=== PATIENT | female | born 1960 | race Caucasian/White ===

== ENCOUNTER 2019-11-22 09:37 | Inpatient (IN) | payer MEDICARE, MEDICAID, SELFPAY ==
[2019-11-22] VITALS (9 sets, daily range): BP systolic 99–126; BP diastolic 60–84; PULSE 66–102; RESP 18; TEMP 36.4–37.9; O2SAT 95–99; BMI 27.8
--- NOTE | ~2019-11-22 | CT_ITS ---
EXAMINATION: CT brain wo con EXAM DATE: 11/22/2019 12:21 INDICATION: Syncope. TECHNIQUE: Spiral CT of the head was performed without contrast. Axial, coronal and sagittal images were reviewed. The dose-length product (DLP) for this examination was 605.33 mGy-cm. The exposure w as tailored according to patient size, and iterative reconstruction (ASIR) was used as additional dos e reduction technique. There is no prior study for comparison. FINDINGS: There is no acute intraparenchymal hemorrhage. No evidence of intraparenchymal brain mass lesion. No evidence of acute infarction. There is no mass effect or midline shift. The ventricles are normal in size. There are no extra-axial collections. There are no acute calvarial fractures. T he orbits are unremarkable. Soft tissue is unremarkable. The visualized sinuses and mastoid air randee ls are well aerated. IMPRESSION: 1. Unremarkable head CT examination. Reviewed, dictated and finalized at location B.
--- NOTE | ~2019-11-22 | XR_ITS ---
EXAMINATION: XR chest 1V portable EXAM DATE: 11/22/2019 11:13 INDICATION: Cough, shortness of breath, symptoms for 3 days. TECHNIQUE: Portable AP frontal chest x-ray was obtained. Comparison is made to prior examination from 06/12/2016. FINDINGS: Probable small to moderate gastroesophageal hiatal hernia. Minimal linear basilar atelectas is. The lungs are otherwise clear. There are no pleural effusions. The cardiomediastinal silhouette is within normal limits. There is no pneumothorax suspected. The bones and soft tissues are unrema rkable. There are cholecystectomy clips. IMPRESSION: 1. Minimal linear basilar atelectasis. 2. Probable small to moderate hiatal hernia. Reviewed, dictated and finalized at location B.
--- NOTE | ~2019-11-22 | CT_ITS ---
EXAMINATION: CTA chest PE protocol DATE: 11/22/2019 12:21 INDICATION: Soreness of breath, cough and elevated d-dimer. Syncopal episode. TECHNIQUE: Computed tomography (CT) pulmonary angiogram of the chest was performed with 100 mL Omnipa que-350 intravenous contrast. Additional 3D reconstructions utilizing coronal maximum intensity proje ction (MIP) were performed. Automated exposure control and iterative reconstruction technique were em ployed. The dose-length product was 606.06 mGy-cm. COMPARISON: None FINDINGS: Excellent contrast opacification of the pulmonary arteries. There is mild streak artifact from dense contrast in the superior vena cava and right atrium. To severe scattered respiratory motion artifact which significantly limits evaluation in the segmental and first order subsegmental arteries and rend ers more peripheral evaluation essentially nondiagnostic. No definitive pulmonary embolism identified . Mild linear discoid atelectasis in the bilateral lower lobes. There are scattered groundglass opaci ties throughout both lungs with dependent predominance favoring additional atelectasis, mild pulmonar y edema and/or pneumonia. No pleural effusion. Borderline heart size. No pericardial effusion. Thorac ic aorta is normal in caliber with no dissection. Moderate-sized sliding-type hiatal hernia. No patho logically enlarged thoracic lymphadenopathy. 2.1 cm cyst at the apex of the spleen. 6.2 cm mass in th e liver which can be seen on MRI studies dating back to 03/30/2014 with imaging features on prior MRI studies most consistent with a cavernous hemangioma. Additional unchanged 1.5 cm low-attenuation lesi on at the dome of the liver which could represent additional hepatic cyst or hemangioma. Cholecystect rebecca clips the gallbladder fossa. Partially visualized at least 5.1 cm left renal cyst. There are few scattered colonic diverticula without adjacent inflammatory change to suggest diverticulitis. Mild th oracic dextrocurvature with moderate spondylosis. IMPRESSION: 1. No definitive pulmonary embolism although sensitivity is decreased in the segmental and first orde r segmental pulmonary arteries due to respiratory motion and essentially nondiagnostic in the more pe ripheral smaller subsegmental pulmonary arteries. 2. Scattered groundglass opacities in both lungs with dependent predominant to at least in part atele ctasis with differential including pulmonary edema or pneumonia. 3. Borderline heart size. 4. Moderate-sized sliding-type hiatal hernia. Reviewed, dictated and finalized at location A. IMPRESSION: 1. No definitive pulmonary embolism although sensitivity is decreased in the se gmental and first order segmental pulmonary arteries due to respiratory motion and essentially nondiagnostic in the more peripheral smaller subsegmental pulmo nary arteries. 2. Scattered groundglass opacities in both lungs with dependent predominant to at least in part atelectasis with differential including pulmonary edema or pne umonia. 3. Borderline heart size. 4. Moderate-sized sliding-type hiatal hernia.
[2019-11-22 10:13] LABS: Basophils Percent Auto 0.3 % (0.2-1.2); Eosinophils Percent Auto 0.4 % (0-4.4); Hematocrit 42.8 % (37.0-47.0); Hemoglobin 14.3 g/dL (12.0-15.0); Immature Granulocyte Absolute 0.07 K/mm3 (0.00-0.031); Immature Granulocyte Percent A 0.8 % (0-0.5); Lymphocytes Absolute Auto 1.12 K/mm3 (0.9-3.2); Lymphocytes Percent Auto 12.2 % (18.3-44.2); Mean Corpuscular HGB Conc 33.4 g/dl (32-36); Mean Corpuscular Volume 92.8 fl (80-100); Mean Platelet Volume 9.8 fl (7.4-10.4); Monocytes Absolute Auto 0.7 K/mm3 (0.1-0.6); Monocytes Percent Auto 7.1 % (2.6-8.5); Neutrophils Absolute Auto 7.3 K/mm3 (1.3-6.7); Neutrophils Percent Auto 79.2 % (45.5-73.1); Platelet Count Result 184 k/mm3 (150-375); Red Blood Count 4.61 M/mm3 (4.2-5.4); Red Cell Distribution Width 13.2 % (11.5-14.5); White Blood Count 9.2 K/mm3 (4.5-10.0)
--- NOTE | 2019-11-22 10:21 | ED.GENADULT ---
HPI - General Adult General Chief complaint: Nausea/Vomiting/Diarrhea Stated complaint: CHILLS, VOMITING Time Seen by Provider: 11/22/19 10:08 Source: patient Mode of arrival: ambulatory Limitations: no limitations History of Present Illness HPI narrative: This patient is a 59 year old female who presents for evaluation of flu like symptoms. She states she starting friday she developed night sweats, nausea, vomiting, diarrhea and productive cough. She is getting progressively sob so she has been sent to ER. She reports subjective fever. She denies sick contacts. Onset (ago): day(s) (4) Related Data Home Medications Medication Instructions Recorded Confirmed aspirin 81 mg PO DAILY 11/22/19 11/22/19 atorvastatin 40 mg PO HS 11/22/19 11/22/19 metoprolol succinate 50 mg PO HS 11/22/19 11/22/19 trazodone 75 mg PO HS 11/22/19 11/22/19 Allergies Allergy/AdvReac Type Severity Reaction Status Date / Time doxycycline Allergy Mild Hyperactive Verified 05/31/19 13:24 cefuroxime Allergy Unknown reaction Verified 05/31/19 13:24 not available erythromycin base Allergy Unknown Nausea Verified 05/31/19 13:24 lisinopril Allergy Unknown Unknown Verified 11/22/19 09:48 Review of Systems Review of Systems: All systems reviewed & are unremarkable except as noted in HPI and below Constitutional: Constitutional: Reports chills, Reports fatigue and Reports weakness ENT: Reports nasal congestion Cardiovascular: Cardiovascular: Denies chest pain Respiratory: Respiratory: Reports cough, Reports dyspnea and Denies wheezing Gastrointestinal: Gastrointestinal: Reports abdominal pain, Reports diarrhea, Reports nausea and Reports vomiting Musculoskeletal: Musculoskeletal: Reports myalgias Neurologic: Reports headache(s) Endocrine: Endocrine: Reports fatigue PMFSH Past Medical History Medical History Essential (primary) hypertension Family History Family History Mother Family history of cardiac disorder, Onset Age: 82 Hypertension Father Family history of malignant neoplasm Diabetes mellitus Depression Hypertension Patient's father is Family history of cardiovascular disease Social History Social History Smoking status: Never smoker Alcohol intake: never Substance use: never Gender identity (if verbalized by the patient): Female Spiritual care concerns: No Exam Narrative: Exam Narrative: GENERAL: well-nourished, and in no acute distress. HEAD: Normocephalic, atraumatic EYES: PERRLA and EOMI, conjunctiva clear without discharge EARS: TM's clear bilaterally without erythema or dullness NOSE: Nares clear, no rhinorrhea or epistaxis THROAT:Mucous membranes moist, Oropharynx normal without erythema, exudate, peritonsillar swelling or fluctuance NECK: Supple, without lymphadenopathy or mass RESPIRATORY: No respiratory distress, Airway patent, Respirations non-labored, Clear to auscultation without rales, rhonchi or wheeze HEART: Regular rate and rhythm. No murmur heard. Normal peripheral pulses. ABDOMEN: Soft, nontender, nondistended, normal active bowel sounds. No masses. No rebound or guarding, No organomegaly. EXTREMITIES: No edema, normal strength with full range of motion. SKIN: Warm, dry, normal color without rash NEURO: Alert and oriented x3. CN 2-12 grossly intact. No focal deficits. PSYCH: Normal mood and affect. Course Reevaluation(s) Reevaluation #1: Nursing staff states that while patient was getting AbG she seems to pass out and jerk. They when they walked in room she was alert and oriented and no postictal. Her son is worried she had seizure but it sounds like syncopal episode. Date: 11/22/19 Time: 11:25 Consultations Consultation #1: I Discussed case with Dr. Mansfield and he
[2019-11-22 10:28] LABS: Alanine Aminotransferase 48 U/L (4-35); Albumin Level 4.2 g/dL (3.5-5.1); Alkaline Phosphatase 145 U/L (38-126); Aspartate Amino Transferase 50 U/L (14-36); Bilirubin,Total 0.6 mg/dL (0.2-1.3); Blood Urea Nitrogen 25 mg/dL (7-17); Calcium 8.8 mg/dL (8.4-10.2); Carbon Dioxide 28 mmol/L (22-30); Chloride 100 mmol/L (98-107); Estimated CRCL calculation 41 ml/min; Estimated Glomerular Filt Rate 38; Glucose 108 mg/dL (65-105); Lipase 619 U/L (23-300); Potassium 3.5 mmol/L (3.4-5.0); Sodium 136 mmol/L (137-145)
[2019-11-22 10:38] LABS: Alveolar/Arterial O2 Gradient 42.7 mmHg; Base Excess ABG 1.4 mEq/l (+/-2.0); Carboxyhemoglobin 0.6 % THb (0-2.0); Fractional Inspired Oxygen 21 %; Methemoglobin ABG 0.2 %THb (0-1.5); Oxygen Content ABG 19.2 %vol (16.0-22.0); Oxygen Saturation ABG 95.1 % (95.0-100.0); Oxyhemoglobin 93.5 % THb (90.0-100.0); PCO2 ABG 32.3 mmHg (35.0-45.0); PO2 ABG 68.4 mmHg (80.0-100.0); PO2 FiO2 Ratio Arterial Blood 3.26 %; Reduced Hemoglobin 5.7 %THb (0-5.0); Total Hemoglobin 14.6 g/dL (12.0-18.0); pH ABG 7.489 (7.350-7.450)
[2019-11-22 10:39] LABS: Device ROOM AIR; Modified Allen's Test Pass; Site Drawn LEFT RADIAL
[2019-11-22 10:41] LABS: D Dimer 1.59 ug/mL (<0.48)
[2019-11-22 10:57] LABS: Lactate Dehydrogenase 668 U/L (313-618)
[2019-11-22 11:08] LABS: NT Pro B Type Natriuretic Pept 19 PG/ML (5-100)
[2019-11-22] MEDS: SODIUM CHLORIDE 0.9% IV 1,000 ML 999 ML IV CONT (11:55)
[2019-11-22 13:26] LABS: Add Urine Microscopic? YES; Appearance Urine Clear (Clear); Bilirubin Urine Negative (Negative); Blood Urine 1+ (Negative); Color Urine Straw (Yellow); Glucose Urine UA Negative (Negative); Ketones Urine Negative (Negative); Leukocyte Esterase Ur 2+ LEU/UL (Negative); Mucus Urine Rare /lpf; Nitrate Urine Negative (Negative); Protein Urine Negative (Negative); RBC Urine 0-2 /hpf (0-2); Specific Grav Ur 1.041 (1.001-1.035); Squamous Epithelial Cell Urine Rare /hpf (Few); Urobilinogen Urine Negative mg/dL (<2.0)
--- NOTE | 2019-11-22 15:36 | PC.NURSE ---
This patient, Faviola Quesada, was admitted to [facility] Surg Room 331-01. Patient/family oriented to hospital policies and general routines including ID bracelet, bed and alarms, visiting hours, pain management, procedures, bathroom and other care routines, personal items, smoking policy, room service/diet, and visiting hours. Valuables list has been completed. Information on how to activate the Rapid Response Team has been discussed. Patient/Family are encouraged to report perceived risks to care and to ask questions if they do not understand what they are told or what they should do.
[2019-11-22] MEDS: SODIUM CHLORIDE 0.9% IV 1,000 ML 125 ML IV CONT ×2 (15:47→16:03)
--- NOTE | 2019-11-22 16:37 | PM.IMHP ---
H&P: HPI History of Present Illness Chief complaint: pneumonia,suspected covid 19 Narrative: Faviola Quesada is a 59 year old female who presented to the hospital with cough, SOB and subjective fever. She also refers myalgias, nausea, vomiting and diarrhea. She denies sick contacts. She also denies chest pain, no syncope, no urinary symptoms, refers headaches,no neck pain or rigidity. Review of Systems Review of Systems: All systems reviewed & are unremarkable except as noted in HPI and below PMFSH Past Medical History Medical History Essential (primary) hypertension Family History Family History Mother Family history of cardiac disorder, Onset Age: 82 Hypertension Father Family history of malignant neoplasm Diabetes mellitus Depression Hypertension Patient's father is Family history of cardiovascular disease Social History Social History Smoking status: Never smoker Alcohol intake: never Substance use: never Gender identity (if verbalized by the patient): Female Spiritual care concerns: No Meds Home Medications and Allergies Home Medications Medication Instructions Recorded Confirmed Type triamterene 37.5 1 cap PO DAILY #90 cap 05/14/19 Rx mg-hydrochlorothiazide 25 mg capsule citalopram 20 mg tablet 40 mg PO DAILY #180 tablet 09/08/19 11/22/19 Rx buspirone 10 mg tablet 10 mg PO BID #180 tablet 10/07/19 11/22/19 Rx ergocalciferol (vitamin D2) 1,250 1,250 mcg PO WEEKLY #13 cap 10/19/19 11/22/19 Rx mcg (50,000 unit) capsule aspirin 81 mg PO DAILY 11/22/19 11/22/19 History atorvastatin 40 mg PO HS 11/22/19 11/22/19 History metoprolol succinate 50 mg PO HS 11/22/19 11/22/19 History trazodone 75 mg PO HS 11/22/19 11/22/19 History Allergies Allergy/AdvReac Type Severity Reaction Status Date / Time doxycycline Allergy Mild Hyperactive Verified 05/31/19 13:24 cefuroxime Allergy Unknown reaction Verified 05/31/19 13:24 not available erythromycin base Allergy Unknown Nausea Verified 05/31/19 13:24 lisinopril Allergy Unknown Unknown Verified 11/22/19 09:48 Vital Signs Vital Signs - 24 hr 11/22/19 09:42 11/22/19 10:22 11/22/19 10:23 Temperature 97.6 F Pulse Rate 93 74 77 Respiratory Rate 18 Blood Pressure 120/62 107/74 111/84 Pulse Oximetry 97 11/22/19 10:24 11/22/19 11:52 11/22/19 13:01 Temperature Pulse Rate 102 H 66 67 Respiratory Rate 18 18 Blood Pressure 99/76 L 104/66 104/66 Pulse Oximetry 95 99 11/22/19 15:46 Temperature Pulse Rate 78 Respiratory Rate 18 Blood Pressure 122/60 Pulse Oximetry 99 Exam Const: General: no acute distress HENMT: General nose exam: Normal nares present Mouth: Yes moist mucous membranes Eyes: Sclera: sclerae normal Pupils: Equal, round and reactive pupils present EOM: EOMs intact bilaterally Neck: Neck: supple and no JVD Resp: Effort & Inspection: normal respiratory effort Auscultation: crackles, wheezes and diminished lung sounds Cardio: Rate: regular rate Rhythm: regular rhythm Other: No bradycardia or tachycardia GI: Inspection: non-distended GI Palp: Yes Soft to palpation, No Firmness to palpation present (GI), No Tenderness to palpation present (GI), No Guarding due to palpation present (GI) and No Hernia present Auscultation: normal bowel sounds and bowels sounds normal Skin: General skin exam: no rashes or lesions noted Neuro: Cognition (Neuro): normal cognition Speech: normal speech Motor exam (neuro): 5/5 motor strength present throughout and Normal motor muscle tone present throughout Extrem: General: normal to inspection Psych: Affect: normal affect H&P: Results Labs Labs: Short CBC 11/22/19 Range/Units 10:03 WBC 9.2 (4.5-10.0) K/mm3 Hgb 14.3 (12.0-15.0) g/dL Hct
--- NOTE | 2019-11-22 16:53 | ECG_ITS ---
Measurements Intervals [place] Rate: 70 P: 31 TX: 162 QRS: -41 QRSD: 97 T: 25 QT: 407 QTc: 442 Interpretive Statements SINUS RHYTHM LEFT AXIS DEVIATION INCOMPLETE RIGHT BUNDLE BRANCH BLOCK BORDERLINE ST-T WAVE ABNORMALITY- ANT/INF LEADS BORDERLINE ECG Electronically Signed On 11-23-2019 7:11:13 CDT by Dave Miller D.O.
[2019-11-22 19:07] LABS: SARS-CoV-2 RNA PCR Positive
--- NOTE | 2019-11-22 19:10 | PC.NURSE ---
Notified Dr. Barriga that patient COVID test was positive. No new orders.
[2019-11-22] MEDS: ATORVASTATIN 40 MG TABLET PO (21:03)
[2019-11-22] MEDS: busPIRone HCL 10 MG TABLET PO (21:03)
[2019-11-22] MEDS: traZODone HCL 25 MG TABLET 75 MG PO (21:03)
[2019-11-22] MEDS: METOPROLOL SUCCINATE EXT REL 50 MG TABCR PO (21:04)
[2019-11-22] MEDS: HEPARIN SODIUM 5,000 UNITS/ML VIAL 5000 UNITS SUB-Q (21:04)
[2019-11-23 02:00] VITALS: BP 98/49; PULSE 75; RESP 20; TEMP 38.2; O2SAT 96
[2019-11-23] MEDS: SODIUM CHLORIDE 0.9% IV 1,000 ML 125 ML IV CONT (04:00)
[2019-11-23] MEDS: HEPARIN SODIUM 5,000 UNITS/ML VIAL 5000 UNITS SUB-Q ×2 (05:45→14:44)
[2019-11-23 06:00] VITALS: BP 105/60; PULSE 67; RESP 18; TEMP 37.6; O2SAT 92
[2019-11-23 06:24] LABS: Basophils Percent Auto 0.3 % (0.2-1.2); Eosinophils Percent Auto 0.4 % (0-4.4); Hemoglobin 11.7 g/dL (12.0-15.0); Immature Granulocyte Absolute 0.05 K/mm3 (0.00-0.031); Immature Granulocyte Percent A 0.7 % (0-0.5); Lymphocytes Absolute Auto 1.12 K/mm3 (0.9-3.2); Lymphocytes Percent Auto 16.8 % (18.3-44.2); Mean Corpuscular HGB Conc 32.5 g/dl (32-36); Mean Corpuscular Hemoglobin 30.5 pg (26-34); Mean Platelet Volume 9.5 fl (7.4-10.4); Monocytes Absolute Auto 0.4 K/mm3 (0.1-0.6); Monocytes Percent Auto 5.4 % (2.6-8.5); Neutrophils Absolute Auto 5.1 K/mm3 (1.3-6.7); Neutrophils Percent Auto 76.4 % (45.5-73.1); Platelet Count Result 136 k/mm3 (150-375); Red Blood Count 3.83 M/mm3 (4.2-5.4); Red Cell Distribution Width 13.2 % (11.5-14.5); White Blood Count 6.7 K/mm3 (4.5-10.0)
[2019-11-23 06:40] LABS: Alanine Aminotransferase 32 U/L (4-35); Albumin Level 3.1 g/dL (3.5-5.1); Alkaline Phosphatase 105 U/L (38-126); Aspartate Amino Transferase 33 U/L (14-36); Bilirubin,Total 0.3 mg/dL (0.2-1.3); Blood Urea Nitrogen 18 mg/dL (7-17); Calcium 7.6 mg/dL (8.4-10.2); Carbon Dioxide 26 mmol/L (22-30); Chloride 102 mmol/L (98-107); Estimated CRCL calculation 43 ml/min; Estimated Glomerular Filt Rate 42; Glucose 92 mg/dL (65-105); Potassium 3.3 mmol/L (3.4-5.0); Sodium 135 mmol/L (137-145)
[2019-11-23] MEDS: CITALOPRAM HYDROBROMIDE 20 MG TABLET 40 MG PO (09:42)
[2019-11-23] MEDS: ASPIRIN 81 MG CHEWABLE TABLET PO (09:42)
[2019-11-23] MEDS: busPIRone HCL 10 MG TABLET PO (09:42)
[2019-11-23 14:00] VITALS: BP 123/86; PULSE 78; RESP 18; TEMP 37.1; O2SAT 98
--- NOTE | 2019-11-23 18:00 | P.DS_ITS ---
DS: Discharge Diagnosis Discharge Diagnosis (1) COVID-19 ruled out: Code(s): Z03.818 - Encounter for observation for suspected exposure to other biological agents ruled out Status: Acute Assessment and Plan: * Sars-cov-2 PCR positive * Pt remains afebrile, sats are good. mild cough, body aches, fatigue, not SOB * She is getting coverage for community acquired PNA with iv zithromax and iv rocephin and iv fluids * Pt can go home with course of zithromax for 10 days 2 dose packs and strict quarantine with mask and social distancing for 14 days. * Long discussion with patient, who appears very down with the diagnosis * No big risk factors apart from chronic disease and age * Lives with her who is over 60 advised that he is high risk for covid due to his age * Plan is for to live with the daughters house * Pt advised can return to the hospital if feeling worse * Follow up in 3-4 weeks if not feeling better (2) Syncope: Qualifiers: Syncope type: vasovagal syncope Qualified Code(s): R55 - Syncope and collapse Code(s): R55 - Syncope and collapse Status: Acute Assessment and Plan: * Apparently she had a syncopal episode most likley vasovagal * Pt had EKG and ABG * Pt received iv fluids in the hospital (3) D-dimer, elevated: Code(s): R79.89 - Other specified abnormal findings of blood chemistry Status: Acute Assessment and Plan: * She had a CTA that did not show evidence of central PE, but shows ground glass opactity in keeping with pneumonia (4) Chronic kidney disease, stage 3 (moderate): Code(s): N18.3 - Chronic kidney disease, stage 3 (moderate) Status: Acute Assessment and Plan: * Reviewing previous records she seems to be at her baseline. (5) Essential (primary) hypertension: Code(s): I10 - Essential (primary) hypertension Status: Acute Assessment and Plan: * Her blood pressure is on the low side right now. * Antihypertensives restarted after fluid hydration. (6) Elevated liver enzymes: Code(s): R74.8 - Abnormal levels of other serum enzymes Status: Acute Assessment and Plan: * Could be related to COVID 19. * PCP to monitor later (7) Depression: Code(s): F32.9 - Major depressive disorder, single episode, unspecified Status: Acute Assessment and Plan: * Resume her home medications. Appears very low with the diagnosis explained to her that she should be feeling better in 2 weeks time. (8) Mixed hyperlipidemia: Code(s): E78.2 - Mixed hyperlipidemia Status: Chronic Assessment and Plan: * Resume her home medications. DS: Summary Time Spent with Patient Time attestation: Total time spent providing and/or coordinating discharge services:40 minutes on day of dischrage Exam Narrative: Exam Narrative: Temp Pulse Resp BP Pulse Ox 37.1 C 78 18 123/86 98 11/23/19 14:00 11/23/19 14:00 11/23/19 14:00 11/23/19 14:00 11/23/19 14:00 Pt in bed low voice appears depressed Not SOB Not febrile No cough heard in the room DS: Data Data Completed and Pending Labs on day of discharge: Labs from last 24 hours 11/23/19 11/23/19 11/22/19 06:14 06:14 10:26 WBC 6.7 RBC 3.83 L Hgb 11.7 L
--- NOTE | 2019-11-23 18:00 | PM.DS ---
DS: Discharge Diagnosis Discharge Diagnosis (1) COVID-19 ruled out: Code(s): Z03.818 - Encounter for observation for suspected exposure to other biological agents ruled out Status: Acute Assessment and Plan: Sars-cov-2 PCR positive Pt remains afebrile, sats are good. mild cough, body aches, fatigue, not SOB She is getting coverage for community acquired PNA with iv zithromax and iv rocephin and iv fluids Pt can go home with course of zithromax for 10 days 2 dose packs and strict quarantine with mask and social distancing for 14 days. Long discussion with patient, who appears very down with the diagnosis No big risk factors apart from chronic disease and age Lives with her who is over 60 advised that he is high risk for covid due to his age Plan is for to live with the daughters house Pt advised can return to the hospital if feeling worse Follow up in 3-4 weeks if not feeling better (2) Syncope: Qualifiers: Syncope type: vasovagal syncope Qualified Code(s): R55 - Syncope and collapse Code(s): R55 - Syncope and collapse Status: Acute Assessment and Plan: Apparently she had a syncopal episode most likley vasovagal Pt had EKG and ABG Pt received iv fluids in the hospital (3) D-dimer, elevated: Code(s): R79.89 - Other specified abnormal findings of blood chemistry Status: Acute Assessment and Plan: She had a CTA that did not show evidence of central PE, but shows ground glass opactity in keeping with pneumonia (4) Chronic kidney disease, stage 3 (moderate): Code(s): N18.3 - Chronic kidney disease, stage 3 (moderate) Status: Acute Assessment and Plan: Reviewing previous records she seems to be at her baseline. (5) Essential (primary) hypertension: Code(s): I10 - Essential (primary) hypertension Status: Acute Assessment and Plan: Her blood pressure is on the low side right now. Antihypertensives restarted after fluid hydration. (6) Elevated liver enzymes: Code(s): R74.8 - Abnormal levels of other serum enzymes Status: Acute Assessment and Plan: Could be related to COVID 19. PCP to monitor later (7) Depression: Code(s): F32.9 - Major depressive disorder, single episode, unspecified Status: Acute Assessment and Plan: Resume her home medications. Appears very low with the diagnosis explained to her that she should be feeling better in 2 weeks time. (8) Mixed hyperlipidemia: Code(s): E78.2 - Mixed hyperlipidemia Status: Chronic Assessment and Plan: Resume her home medications. DS: Summary Time Spent with Patient Time attestation: Total time spent providing and/or coordinating discharge services:40 minutes on day of dischrage Exam Narrative: Exam Narrative: Temp Pulse Resp BP Pulse Ox 37.1 C 78 18 123/86 98 11/23/19 14:00 11/23/19 14:00 11/23/19 14:00 11/23/19 14:00 11/23/19 14:00 Pt in bed low voice appears depressed Not SOB Not febrile No cough heard in the room DS: Data Data Completed and Pending Labs on day of discharge: Labs from last 24 hours 11/23/19 11/23/19 11/22/19 06:14 06:14 10:26 WBC 6.7 RBC 3.83 L Hgb 11.7 L Hct 36.0 L MCV 94.0 MCH 30.5 MCHC 32.5 RDW 13.2 Plt Count 136 L MPV 9.5 Immature Gran % (Auto) 0.7 H Neut % (Auto) 76.4 H Lymph % (Auto) 16.8 L [place] % (Auto) 5.4 Eos % (Auto) 0.4 Baso % (Auto) 0.3 Lymph # (Auto) 1.12 [place] # (Auto) 0.4 Eos # (Auto) 0.0 Baso # (Auto) 0.0 Abs Immat Gran (auto) 0.05 H Absolute Neuts (auto) 5.1 Absolute Nucleated RBC 0.0 Nucleated RBC % 0.0 Sodium 135 L Potassium 3.3 L Chloride 102 Carbon Dioxide 26 BUN 18 H
--- NOTE | 2019-11-23 18:13 | PC.NURSE ---
Patient stated to me that she is worried about going home. The patient stated that she feels that her will make things difficult for her at home. I asked if the patient feels safe going home and she said I will be okay I've dealt with this a long time. I have educated the patient that she can tell any staff member including myself if she is concerned about her safety at home. I placed a call to the physician at 1800 attempting to notify her of the situation, no answer and left a message, will attempt to call the physician again.
--- NOTE | 2019-11-23 18:19 | PC.NURSE ---
Spoke with Dr. Mukherjee at 1819, I explained to her what the patient had told me earlier about being worried to go home with her . I was told that these are difficult social situations that are hard to deal with.
== END 2019-11-23 19:00 | disposition home or self-care (01) | DRG 177 ==
LOC: ANHED 14:13 → ANH3MEDSUR 14:58
PROVIDERS: Admitting Provider Internal Medicine; Emergency Provider General Practice; PCP Family Medicine; Visit Provider Family Medicine
DX: U07.1 COVID-19 (principal); J12.89 Other viral pneumonia; R55 Syncope and collapse; N18.3 Chronic kidney disease, stage 3 (moderate); I12.9 Hypertensive chronic kidney disease with stage 1 through stage 4 chronic kidney disease, or unspecified chronic kidney disease; N18.9 Chronic kidney disease, unspecified; R74.8 Abnormal levels of other serum enzymes; F32.9 Major depressive disorder, single episode, unspecified; E78.2 Mixed hyperlipidemia; R79.89 Other specified abnormal findings of blood chemistry
CPT/HCPCS: 36415; 36600; 70450; 71045; 71275; 80053; 81001; 82375; 82728; 82805; 83050; 83615; 83690; 83880; 85025; 85380; 86140; 87040; 87086; 87088; 87635; 93005; 96360; 96361; 96365; 96366; 96367; 99285; A9270; C9803; G0378; J0456; J0696; J1644; J7030; Q9967; U0003

== ENCOUNTER 2020-01-03 05:18 | Emergency (ER) | payer MEDICARE, SELFPAY ==
[2020-01-03 05:22] VITALS: BP 123/59; PULSE 73; RESP 18; TEMP 36.7; O2SAT 100
--- NOTE | 2020-01-03 05:32 | ED.ALLEREA ---
HPI - Allergic Reaction General Chief complaint: Allergic Reaction Stated complaint: Facial swelling Time Seen by Provider: 01/03/20 05:22 History of Present Illness HPI narrative: Patient presents with her for swelling of her face eyes and hand and leg. She had an exposure to poison david recently. It is in a dotted rash on her right hand, left inner thigh, and her face is swollen with particularly the lower eyelids swollen. She took Benadryl at home last night. She has had previous reactions to poison david. She had COVID in October and is still have a cough. MD complaint: allergic reaction Onset (ago): hour(s) Exposure: other (Poison david) Known history of allergy to: Poison david Symptoms: rash, itching and facial swelling Severity: moderate Treatment prior to arrival: benadryl Previous Allergic Reaction History: other (Dermatitis) Related Data Home Medications Medication Instructions Recorded Confirmed aspirin 81 mg PO DAILY 11/22/19 11/22/19 atorvastatin 40 mg PO HS 11/22/19 11/22/19 metoprolol succinate 50 mg PO HS 11/22/19 11/22/19 trazodone 75 mg PO HS 11/22/19 11/22/19 magnesium 800 mg PO DAILY 01/03/20 Allergies Allergy/AdvReac Type Severity Reaction Status Date / Time doxycycline Allergy Mild Hyperactive Verified 01/03/20 05:27 cefuroxime Allergy Unknown reaction Verified 01/03/20 05:27 not available erythromycin base Allergy Unknown Nausea Verified 01/03/20 05:27 lisinopril Allergy Unknown Unknown Verified 01/03/20 05:27 Review of Systems Review of Systems: Narrative: CONSTITUTIONAL: Denies fever, chills, or sweats. EYES: Denies visual changes, redness, or discharge. ENT: Denies rhinorrhea, congestion, sore throat, or otalgia. CARDIOVASCULAR: Denies chest pain, palpitations, or edema. RESPIRATORY: Still has cough but notr dyspnea. GASTROINTESTINAL: Denies abdominal pain, nausea, vomiting, or diarrhea. GENITOURINARY: Denies dysuria or hematuria. SKIN: Denies rash or itching. MUSCULOSKELETAL: Denies back pain, joint pain, or myalgia. NEUROLOGIC: Denies headache, numbness, or weakness. PSYCHIATRIC: Denies anxiety or depression. [facility] Past Medical History Medical History (Updated 01/03/20 @ 05:34 by Clemencia Concepcion MD) Essential (primary) hypertension History of 2019 novel coronavirus disease (COVID-19) Social History Social History Smoking status: Never smoker Alcohol intake: never Substance use: never Gender identity (if verbalized by the patient): Female Spiritual care concerns: No Exam Narrative: Exam Narrative: GENERAL: Well-appearing, well-nourished, and in no acute distress. HEAD: Normocephalic, atraumatic. Lower eyelids so swollen. Cheeks with erythema. EYES: PERRLA and EOMI. ENT: Nares clear, no rhinorrhea or epistaxis. Mucous membranes moist. NECK: Supple. CHEST: Clear to auscultation. No respiratory distress. HEART: Regular rate and rhythm. No murmur heard. Normal peripheral pulses. ABDOMEN: Soft, nontender, nondistended, normal active bowel sounds. EXTREMITIES: Normal range of motion. No edema. SKIN: Warm, dry, linear rash on the right hand and left inner thigh. NEURO: No focal deficits. Alert and oriented x3. PSYCH: Normal mood and affect. Course Vital Signs Vital signs: Vital Signs Temperature 98.1 F 01/03/20 05:22 Pulse Rate 73 01/03/20 05:22 Respiratory Rate 18 01/03/20 05:22 Blood Pressure 123/59 L 01/03/20 05:22 Pulse Oximetry 100 01/03/20 05:22 Temperature 98.1 F 01/03/20 05:22 Pulse Rate 73 01/03/20 05:22 Respiratory Rate 18 01/03/20 05:22 Blood Pressure 123/59 L 01/03/20 05:22 Pulse Oximetry 100 01/03/20 05:22 MDM - Allergic Reaction Differential Diagnosis Differential diagnosis: Likely allergic reaction Medical Records Attestation: I reviewed the patient's medical records. Discharge Plan Discharge Clinical Impression: Contact dermatitis due t
[2020-01-03] MEDS: diphenhydrAMINE HCl CAP 25 MG CAPSULE 50 MG PO (05:34)
[2020-01-03] MEDS: predniSONE 20 MG TABLET 60 MG PO (05:35)
== END 2020-01-03 06:12 | disposition home or self-care (01) ==
LOC: ANHED 05:45
PROVIDERS: Emergency Provider Emergency Medicine; PCP Family Medicine
DX: L23.7 Allergic contact dermatitis due to plants, except food (principal); Z86.19 Personal history of other infectious and parasitic diseases; I10 Essential (primary) hypertension; Z79.82 Long term (current) use of aspirin
CPT/HCPCS: 99283; A9270; J7512

== ENCOUNTER 2021-11-24 13:56 | Emergency (ER) | payer MEDICARE, MEDICAID, SELFPAY ==
[2021-11-24 14:02] VITALS: BP 119/64; PULSE 71; RESP 20; TEMP 36.9; O2SAT 100
--- NOTE | 2021-11-24 14:20 | ED.HA ---
HPI - Headache General Chief Complaint: Headache Stated Complaint: Headache Time Seen by Provider: 11/24/21 14:20 Source: patient Mode of arrival: ambulatory Limitations: no limitations History of Present Illness HPI Narrative: 31-year-old female presented for complaint of frontal STORY for 2 weeks. Endorses a few episodes of posterior lower head pain as well. Denies injury. Has been taking claritin and occasional ibuprofen. Pain is constant and dull. Denies this being the worst pain she's ever had or thunder clap sensation. Denies vision changes, n/v, dizzness, or fever/chills. States BP well controlled. Related Data Home Medications Medication Instructions Recorded Confirmed aspirin 81 mg chewable tablet 81 mg PO DAILY 11/22/19 11/24/21 magnesium 200 mg tablet 800 mg PO DAILY 01/03/20 11/24/21 Allergies Allergy/AdvReac Type Severity Reaction Status Date / Time doxycycline Allergy Mild Hyperactive Verified 11/24/21 14:17 cefuroxime Allergy Unknown reaction Verified 11/24/21 14:17 not available erythromycin base Allergy Unknown Nausea Verified 11/24/21 14:17 lisinopril Allergy Unknown Unknown Verified 11/24/21 14:17 Review of Systems Review of Systems: CONSTITUTIONAL: Denies body aches, fever, chills, or sweats. EYES: Denies visual changes, redness, or discharge. ENT: Denies rhinorrhea, congestion, sore throat, or otalgia. CARDIOVASCULAR: Denies chest pain, palpitations, or edema. RESPIRATORY: Denies cough or dyspnea. GASTROINTESTINAL: Denies abdominal pain, nausea, vomiting, or diarrhea. SKIN: Denies rash, itching, or wounds. MUSCULOSKELETAL: Denies back pain, joint pain, or myalgia. NEUROLOGIC: Denies numbness, tingling, or weakness. All systems reviewed & are unremarkable except as noted in HPI and below PMFSH Past Medical History Medical History Anal fissure (~2000) anal sphincterectomy Choriocarcinoma (~1989) COVID-19 ruled out Cyst of kidney, acquired D-dimer, elevated Essential (primary) hypertension Hemangioma of intra-abdominal structures History of 2019 novel coronavirus disease (COVID-19) History of chicken pox History of mumps Surgical History Surgical History History of hemorrhoidectomy Hx of cholecystectomy (~07/12/14) Family History Family History Mother Hypertension Heart disease Pacemaker Lung cancer Father Diabetes mellitus Depression Hypertension Heart disease Bipolar disorder (manic depression) Daughter Age: 34 No problems noted. Daughter Age: 32 No problems noted. Grandparent , in her 80s Amputation of leg Grandparent , in his 70s No problems noted. Grandparent , in her 60s Breast cancer Grandparent , in his 70s No problems noted. Social History Social History Alcohol intake: never Substance use: never Gender identity (if verbalized by the patient): Female Spiritual care concerns: No Comments At time of signature, I have reviewed and agree with nursing past medical, surgical, social and family history unless otherwise noted. Please see nursing chart for further information. There is no relevant family history pertinent to the presenting complaint Exam Narrative: GENERAL: Well-appearing HEAD: Normocephalic, atraumatic. EYES: EOMI. PERRLA No redness or drainage. Conjunctivae normal. ENT: Mucous membranes pink and moist. No rhinorrhea. TMs normal bilaterally. Throat normal. Uvula midline. NECK: Normal AROM. Supple. No lymphadenopathy. CHEST: No respiratory distress. Clear to auscultation. HEART: Regular rate and rhythm. No murmur appreciated. Normal peripheral pulses. SKIN: Warm, dry, no rash. Capillary refi
[2021-11-24] MEDS: ACETAMINOPHEN 500 MG TABLET 1000 MG PO (14:42)
== END 2021-11-24 14:50 | disposition home or self-care (01) ==
PROVIDERS: Emergency Provider Nurse Practitioner Family; PCP Family Medicine
DX: R51.9 Headache, unspecified (principal); I10 Essential (primary) hypertension; Z86.16 Personal history of COVID-19; Z85.42 Personal history of malignant neoplasm of other parts of uterus; Z79.82 Long term (current) use of aspirin
CPT/HCPCS: 99213; A9270; G0463

== ENCOUNTER 2022-01-12 12:27 | Outpatient (CLI) | payer MEDICARE, MEDICAID, SELFPAY ==
--- NOTE | ~2022-01-12 | CT_ITS ---
EXAMINATION: CT brain & sinus wo con DATE: 01/12/2022 13:32 INDICATION: Frontal headache. Sinus pressure. TECHNIQUE: Computed tomography (CT) of the head and sinuses was performed without intravenous contras t. The mA was adjusted according to patient size. Iterative reconstruction technique was employed. Th e dose-length product was 832.33 mGy-cm. COMPARISON: Head CT 11/22/2019 FINDINGS: HEAD CT: There is no intracranial hemorrhage, acute infarction, or abnormal intracranial mass lesion. The ventricles are normal in size. The orbits are normal. The mastoid air cells are normal. SINUSES CT: The frontal sinuses are clear. There is mild mucosal thickening in the ethmoid sinuses. T here is mucosal thickening in the sphenoid sinuses, left worse than right. There is sclerosis of the atkins of left sphenoid sinus, consistent with chronic sinusitis. There is mild mucosal thickening in the maxillary sinuses. There is rightward deviation the nasal septum. There is stenosis of the infund ibula of the ostiomeatal units. IMPRESSION: 1. Normal brain. 2. Chronic sinusitis. 3. Rightward deviation of the nasal septum. Reviewed, dictated and finalized at location A.
== END 2022-01-12 12:28 | disposition home or self-care (01) ==
PROVIDERS: PCP Family Medicine; Visit Provider Physician Assistant
DX: R51.9 Headache, unspecified (principal); J32.8 Other chronic sinusitis; J34.2 Deviated nasal septum
CPT/HCPCS: 70450; 70486

== ENCOUNTER 2022-05-14 11:55 | Emergency (ER) | payer MEDICARE, MEDICAID, SELFPAY ==
--- NOTE | ~2022-05-14 | XR_ITS ---
Right foot Technique: AP, oblique, and lateral views were obtained. Clinical History: Pain Findings: No acute fracture or dislocation is seen. Osseous alignment is anatomic. There is mild dege nerative change at the first metatarsophalangeal joint. Soft tissues are unremarkable. Impression: No acute fracture or dislocation. Mild degenerative change of the first metatarsophalangeal joint. Reviewed, dictated and finalized at location . SETTER Impression: No acute fracture or dislocation. Mild degenerative change of the first metatarsophalangeal joint.
[2022-05-14 12:15] VITALS: BP 131/70; PULSE 56; RESP 16; TEMP 36.5; O2SAT 99
--- NOTE | 2022-05-14 12:42 | ED.EXTPRO ---
HPI - Extremity Problem General Chief complaint: Extremity Problem,Nontraumatic Stated complaint: rt swollen foot Source: patient Mode of arrival: ambulatory Limitations: no limitations History of Present Illness HPI Narrative: Patient presents for evaluation of right foot pain for the last 2 days. She cannot identify any specific precipitating injury believes someone may have stepped on it. She has been spending time with her grandkids. She denies any chronic pain in the affected area. She has her current pain level 7 on a 10 severity, worse with weight-bearing. She took some ibuprofen with mild improvement in her symptoms or after. No paresthesias. No loss of range of motion. Reports swelling in the affected area. Related Data Home Medications Medication Instructions Recorded Confirmed aspirin 81 mg chewable tablet 81 mg PO DAILY 11/22/19 03/04/22 magnesium 200 mg tablet 800 mg PO DAILY 01/03/20 03/04/22 Allergies Allergy/AdvReac Type Severity Reaction Status Date / Time doxycycline Allergy Mild Hyperactive Verified 03/01/22 15:41 cefuroxime Allergy Unknown reaction Verified 03/01/22 15:41 not available erythromycin base Allergy Unknown Nausea Verified 03/01/22 15:41 lisinopril Allergy Unknown Unknown Verified 03/01/22 15:41 Review of Systems Review of Systems: CONSTITUTIONAL: Denies fever, chills, or sweats. EYES: Denies visual changes, redness, or discharge. ENT: Denies rhinorrhea, congestion, sore throat, or otalgia. CARDIOVASCULAR: Denies chest pain, palpitations, or edema. RESPIRATORY: Denies cough or dyspnea. GASTROINTESTINAL: Denies abdominal pain, nausea, vomiting, or diarrhea. GENITOURINARY: Denies dysuria or hematuria. SKIN: Denies rash or itching. MUSCULOSKELETAL: Reports pain and swelling in right foot NEUROLOGIC: Denies headache, numbness, dizziness, or weakness. PSYCHIATRIC: Denies anxiety or depression. COUNTS INCLUDE 234 BEDS AT THE [facility] Past Medical History Medical History Anal fissure (~2000) anal sphincterectomy Choriocarcinoma (~1989) COVID-19 ruled out Cyst of kidney, acquired D-dimer, elevated Essential (primary) hypertension Hemangioma of intra-abdominal structures History of 2019 novel coronavirus disease (COVID-19) History of chicken pox History of mumps Surgical History Surgical History History of hemorrhoidectomy Hx of cholecystectomy (~07/12/14) Family History Family History Mother Hypertension Heart disease Pacemaker Lung cancer Father Diabetes mellitus Depression Hypertension Heart disease Bipolar disorder (manic depression) Daughter Age: 34 No problems noted. Daughter Age: 32 No problems noted. Grandparent , in her 80s Amputation of leg Grandparent , in his 70s No problems noted. Grandparent , in her 60s Breast cancer Grandparent , in his 70s No problems noted. Social History Social History Smoking status: Never smoker Alcohol intake: never Substance use: never Living arrangements: with family Gender identity (if verbalized by the patient): Female Sexual Orientation (if Verbalized by the Patient): Straight or Heterosexual Spiritual care concerns: No Exam Narrative: GENERAL: Well-appearing, well-nourished, and in no acute distress. HEAD: Normocephalic, atraumatic. EYES: PERRLA and EOMI. ENT: Nares clear, no rhinorrhea or epistaxis. Mucous membranes moist. Oropharynx without tonsillar hypertrophy exudate or other lesions. Bilateral TMs pearly pollack nonbulging NECK: Supple. No adenopathy or masses. No carotid bruits or JVD CHEST: Clear to auscultation. No respiratory distress. No wheezes rales or rhonch
== END 2022-05-14 14:00 | disposition home or self-care (01) ==
PROVIDERS: Emergency Provider Nurse Practitioner; PCP Family Medicine
DX: S90.31XA Contusion of right foot, initial encounter (principal); I10 Essential (primary) hypertension; X58.XXXA Exposure to other specified factors, initial encounter
CPT/HCPCS: 73630; 99213; G0463

== ENCOUNTER → 2022-10-23 11:30 | Outpatient (CLI) | payer MEDICARE, MEDICAID, SELFPAY ==
--- NOTE | ~2022-10-23 | MM_ITS ---
EXAMINATION: MM screening hakeem BI w meme HISTORY: Screening mammogram TECHNIQUE: Craniocaudal and mediolateral oblique 3-D tomosynthesis images were obtained and synthetic 2-D images were generated. CAD analysis was submitted and interpreted. COMPARISON: July 01, 2015, March 25, 2014 bilateral screening mammogram examinations BREAST PARENCHYMAL COMPOSITION: There are scattered areas of fibroglandular density. FINDINGS: There is no evidence of suspicious mass, calcification, or architectural distortion to sugg est malignancy in either breast. There has been no suspicious interval change. IMPRESSION: 1. No mammographic evidence of malignancy. 2. Recommend routine screening mammography in one year. BI-RADS Category 1: Negative Reviewed, dictated and finalized at location A.
== END ==
PROVIDERS: PCP Family Medicine; Visit Provider Nurse Practitioner Family
DX: Z12.31 Encounter for screening mammogram for malignant neoplasm of breast (principal)
CPT/HCPCS: 77063; 77067

== ENCOUNTER → 2022-11-29 10:59 | Outpatient (CLI) | payer MEDICARE, MEDICAID, SELFPAY ==
--- NOTE | ~2022-11-29 | DEXA_ITS ---
Bone Density Report Name: GABY SANTANA Age: 62 Sex: Female Ethnicity: White Date of : 1960 Indication: postmenopausal; screening for osteoporosis; height loss; Referring Provider: CHASE ENNIS Study: Bone densitometry was performed. Exam Date: November 29, 2022 Accession number: [id number] Bone Density: Region BMD T-score Z-score Classification AP Spine (L1-L4) 0.917 -1.2 0.5 Osteopenia Femoral Neck (Left) 0.726 -1.1 0.4 Osteopenia Total Hip (Left) 0.933 -0.1 1.1 Normal Femoral Neck (Right) 0.743 -1.0 0.5 Normal Total Hip (Right) 0.837 -0.9 0.3 Normal Total Hip Mean 0.885 -0.5 0.7 Normal World Health Organization criteria for BMD impression classify patients as: Normal (T-score at or above -1.0), Osteopenia (T-score between -1.0 and -2.5), or Osteoporosis (T-score at or below -2.5). 10-year Fracture Risk(1): Major Osteoporotic Fracture 7.8% Hip Fracture 0.6% Reported Risk Factors: [place] (), Neck BMD=0.726, BMI=28.8 (1) FRAX(R) Version 3.08. Fracture probability calculated for an untreated patient. Fracture probability may be lower if the patient has received treatment. Previous Exams: Region Exam Age BMD T-score BMD Change BMD Change Date g/cm2 vs Baseline vs Previous AP Spine(L1-L4) 11/29/2022 62 0.917 -1.2 -0.117* -0.117* 10/07/2012 51 1.034 -0.1 Total Hip(Left) 11/29/2022 62 0.933 -0.1 -0.192* -0.192* 10/07/2012 51 1.125 1.5 Total Hip(Right) 11/29/2022 62 0.837 -0.9 -0.228* -0.228* 10/07/2012 51 1.064 1.0 *Denotes significance at 95% confidence level, LSC for AP Spine = 0.022 g/cm2, LSC for Total Hip = 0.027 g/cm2 Clinical Information Provided by Patient: Patient maximum height was 67.5 Menopause Age: 28 No regular weight bearing exercise Drinks caffeinated beverages Onset of menses at age 10 Number of children 2 Impression: The patient has low bone mass, based on the Total Spine T-score. The patient has an estimated ten-year risk of hip fracture of 0.6% and an estimated ten-year risk of major fracture of 7.8%, based on the WHO FRAX algorithm. The BMD for the AP Spine(L1-L4) decreased, changing by -0.117 since the last DXA exam. The BMD for the Total Hip(Left) decreased, changing by -0.192 since the last DXA exam. The BMD for the Total Hip(Right) decreased, changing by -0.228 since the last DXA exam. Discussion: BONE DENSITY I
== END ==
PROVIDERS: PCP Nurse Practitioner Family; Visit Provider Nurse Practitioner Family
DX: Z13.820 Encounter for screening for osteoporosis (principal); M81.0 Age-related osteoporosis without current pathological fracture; M85.88 Other specified disorders of bone density and structure, other site; M85.852 Other specified disorders of bone density and structure, left thigh
CPT/HCPCS: 77080

== ENCOUNTER 2023-03-04 14:18 | Outpatient (CLI) | payer MEDICARE, MEDICAID, SELFPAY ==
[2023-03-04 18:49] LABS: Alanine Aminotransferase 29 U/L (6-35); Albumin Level 4.2 g/dL (3.5-5.1); Alkaline Phosphatase 100 U/L (38-126); Anion Gap 4 mmol/L (8-16); Aspartate Amino Transferase 36 U/L (14-36); Bilirubin,Total 0.6 mg/dL (0.2-1.3); Blood Urea Nitrogen 23 mg/dL (7-17); Calcium 9.6 mg/dL (8.4-10.2); Carbon Dioxide 33 mmol/L (22-30); Chloride 103 mmol/L (98-107); Cholesterol 174 mg/dL (0-200); Estimated Glomerular Filt Rate 41; Glucose 96 mg/dL (65-110); HDL Direct 89 mg/dL; Potassium 4.4 mmol/L (3.4-5.0); Sodium 140 mmol/L (137-145); Triglycerides 87 mg/dL (<150)
[2023-03-04 19:06] LABS: LDL Cholesterol Direct 63 mg/dL
[2023-03-04 19:29] LABS: Thyroid Stimulating Hormone < 0.015 uIU/mL (0.465-4.680)
[2023-03-04 19:46] LABS: Vitamin D 25 Hydroxy 73.8 ng/mL
[2023-03-04 19:50] LABS: Basophils Absolute Auto 0.1 K/mm3 (0.0-0.1); Basophils Percent Auto 0.7 % (0.2-1.2); Eosinophils Absolute Auto 0.3 K/mm3 (0-0.3); Eosinophils Percent Auto 4.9 % (0-4.4); Hematocrit 38.9 % (37.0-47.0); Hemoglobin 12.7 g/dL (12.0-15.0); Immature Granulocyte Absolute 0.03 K/mm3 (0.00-0.031); Immature Granulocyte Percent A 0.4 % (0-0.5); Lymphocytes Absolute Auto 1.97 K/mm3 (0.9-3.2); Lymphocytes Percent Auto 28.5 % (18.3-44.2); Mean Corpuscular HGB Conc 32.6 g/dl (32-36); Mean Corpuscular Hemoglobin 30.7 pg (26-34); Mean Platelet Volume 9.6 fl (7.4-10.4); Monocytes Absolute Auto 0.6 K/mm3 (0.1-0.6); Monocytes Percent Auto 7.9 % (2.6-8.5); Neutrophils Percent Auto 57.6 % (45.5-73.1); Platelet Count Result 232 k/mm3 (150-375); Red Blood Count 4.14 M/mm3 (4.2-5.4); Red Cell Distribution Width 13.1 % (11.5-14.5); White Blood Count 6.9 K/mm3 (4.5-10.0)
== END 2023-03-04 14:19 | disposition home or self-care (01) ==
LOC: ANHGOSHLAB 14:20
PROVIDERS: PCP Family Medicine; Visit Provider Family Medicine
DX: R29.6 Repeated falls (principal); R41.3 Other amnesia
CPT/HCPCS: 36415; 80053; 80061; 82306; 82607; 84443; 85025

== ENCOUNTER → 2023-03-15 07:37 | Outpatient (CLI) | payer MEDICARE, MEDICAID, SELFPAY ==
--- NOTE | ~2023-03-15 | MR_ITS ---
EXAMINATION: MR brain/brain stem wo con DATE: 03/15/2023 08:37 CDT INDICATION: Difficulty finding words for 6 months. Recent falls. Unsteadiness. TECHNIQUE: Magnetic resonance imaging (MRI) of the brain and brainstem was performed without intraven ous contrast. Sequences included sagittal and axial T1-weighted SE, axial diffusion-weighted FS SE, a xial T2*-weighted GRE, axial T2-weighted FLAIR Propeller, and axial T2-weighted Propeller. Apparent d iffusion coefficient (ADC) maps were created. COMPARISON: MRI dated he 06/2012 FINDINGS: The brain volume and ventricular system are within normal limits. The brain parenchymal si gnal intensity pattern and pollack/white matter is normal and there is no evidence of hemorrhage, space occupying masses or infarctions. The flow signal voids of the major arterial structures about the steb[place] of [place] and within the linnette r dural venous sinuses appear grossly unremarkable and patent. The seventh and eighth cranial nerve complexes are normal. The mid sagittal image demonstrates a normal craniovertebral junction and sully us callosum. The paranasal sinuses are grossly unremarkable. No abnormal contrast enhancement was appreciated. IMPRESSION: 1: No acute intracranial abnormality. Reviewed, dictated and finalized at location A.
== END ==
PROVIDERS: PCP Family Medicine; Visit Provider Family Medicine
DX: R29.6 Repeated falls (principal); R41.3 Other amnesia
CPT/HCPCS: 70551

== ENCOUNTER 2024-04-29 16:07 | Outpatient (CLI) | payer MEDICARE, SELFPAY ==
--- NOTE | ~2024-04-29 | XR_ITS ---
XR shoulder RT min 2V Ordering provider: Chelsey Mansfield MD History: . M25.511 - Pain in right shoulder . Comparison: None. FINDINGS: BONES: No acute fracture or dislocation. JOINT SPACES: The acromioclavicular joint shows mild osteoarthritic changes. The glenohumeral joint i s normal. SOFT TISSUES: Normal. IMPRESSION: No acute osseous abnormality right shoulder. Reviewed, dictated and finalized at location A. FOOD MANAGER
== END 2024-04-29 16:08 | disposition home or self-care (01) ==
PROVIDERS: PCP Family Medicine; Visit Provider Family Medicine
DX: M25.511 Pain in right shoulder (principal)
CPT/HCPCS: 73030

== ENCOUNTER 2024-05-22 11:20 | Emergency (ER) | payer MEDICARE, SELFPAY ==
[2024-05-22 13:25] VITALS: BP 154/82; PULSE 62; RESP 16; TEMP 36.7; O2SAT 98
--- NOTE | 2024-05-22 14:11 | ED.EYEPROB ---
HPI - Eye Problem General Chief complaint: Eye Problems Stated complaint: left eye pain Time Seen by Provider: 05/22/24 14:05 Source: patient and RN notes reviewed Mode of arrival: ambulatory Limitations: no limitations History of Present Illness HPI Narrative: Patient presents today complaining of swelling to the lateral portion of the left lower eyelid yesterday. She woke up today with increased pain and swelling to the medial portion of the eyelid. Denies vision changes or drainage or increased tearing from the eye. Patient does wear glasses. No syle-uxk-woowdor treatment prior to arrival. No recent illness. Related Data Home Medications ?Medication ?Instructions ?Recorded ?Confirmed ?Last Taken ?Type aspirin 81 mg chewable tablet 81 mg PO DAILY 11/22/19 05/22/24 Unknown History magnesium 200 mg tablet 800 mg PO DAILY 01/03/20 05/22/24 Unknown History multivitamin with minerals-folic tablet PO 10/24/23 04/21/24 Unknown History acid 0.4 mg tablet (One-A-Day Women's 50 Plus) Allergies Allergy/AdvReac Type Severity Reaction Status Date / Time doxycycline Allergy Mild Hyperactive Verified 05/22/24 13:21 cefuroxime Allergy Unknown reaction Verified 05/22/24 13:21 not available erythromycin base Allergy Unknown Nausea Verified 05/22/24 13:21 lisinopril Allergy Unknown Unknown Verified 05/22/24 13:21 Review of Systems Review of Systems: CONSTITUTIONAL: Denies body aches, fever, chills, or sweats. EYES: Denies visual changes, redness, or discharge. + left lower eyelid pain and swelling ENT: Denies rhinorrhea, congestion, sore throat, or otalgia. CARDIOVASCULAR: Denies chest pain, palpitations, or edema. RESPIRATORY: Denies cough or dyspnea. GASTROINTESTINAL: Denies abdominal pain, nausea, vomiting, or diarrhea. GENITOURINARY: Denies dysuria or hematuria. SKIN: Denies rash, itching, or wounds. MUSCULOSKELETAL: Denies back pain, joint pain, or myalgia. NEUROLOGIC: Denies headache, numbness, tingling, or weakness. PSYCH: Denies depression or anxiety. [facility] Past Medical History Medical History Abnormal TSH Screening for osteoporosis Frontal headache Vertigo History of chicken pox History of mumps Choriocarcinoma (~1989) Anal fissure (~2000) anal sphincterectomy History of 2019 novel coronavirus disease (COVID-19) D-dimer, elevated Syncope COVID-19 ruled out Cyst of kidney, acquired Essential (primary) hypertension Hemangioma of intra-abdominal structures Surgical History Surgical History History of hemorrhoidectomy Hx of cholecystectomy (~07/12/14) Family History Family History Mother Hypertension Heart disease Pacemaker Lung cancer Father Diabetes mellitus Depression Hypertension Heart disease Bipolar disorder (manic depression) Daughter Age: 36 No problems noted. Daughter Age: 34 No problems noted. Grandparent , in her 80s Amputation of leg Grandparent , in his 70s No problems noted. Grandparent , in her 60s Breast cancer Grandparent , in his 70s No problems noted. Social History Social History Smoking status: Never smoker Alcohol intake: never Substance use: never Do You Feel Safe in your Home?: Yes Lack of Transportation: No Lack of Food: Never True Current Housing: I Have Housing Concerned About Future Housing: No Difficulty Paying Gas/Electric Bills: No Difficulty Paying for Meds: No Currently Unemployed: No Education: Trade/Vocational Certificate Living arrangements: with family Gender identity (if verbalized by the patient): Female Sexual Orientation (if Verbalized by the Patient): Straight or Heterosexual Spiritual care concerns: No Comments At time of signature, I have reviewed and agree with nursing past medical, surgical, social and family history unless otherwise noted. Please see nursing chart for further information. There is no relevant family history pertinent to the presenting complaint Exam Narrative: GENERAL: Well-appearing, well-nourished, and in no acute distress. HEAD: Normocephalic, atraumatic. EYES: EOMI. PERRL. Left eye: Conjunctiva normal. Left lower eyelid is slightly edematous without erythema. It is tender to palpation, especially medially. No abnormal drainage or tearing. ENT: Mucous membranes pink and moist. NECK: Normal AROM. CHEST: No respiratory distress. EXTREMITIES: Normal range of motion. No edema. SKIN: Warm, dry, no rash. Capillary refill normal. Normal skin turgor. NEURO: No focal deficits. Alert and oriented x3. Gait steady. PSYCH: Normal affect. No signs of depression or anxiety. Course Course Level of Care: Express Care Visit Vital Signs Vital signs: Vital Signs Temperature 98.1 F 05/22/24 13:25 Pulse Rate 62 05/22/24 13:25 Respiratory Rate 16 05/22/24 13:25 Blood Pressure 154/82 H 05/22/24 13:25 Pulse Oximetry 98 05/22/24 13:25 Temperature 98.1 F 05/22/24 13:25 Pulse Rate 62 05/22/24 13:25 Respiratory Rate 16 05/22/24 13:25 Blood Pressure 154/82 H 05/22/24 13:25 Pulse Oximetry 98 05/22/24 13:25 Reviewed MDM - Eye Problem MDM Narrative Medical decision making narrative: Patient has some mild swelling and tenderness to the left lower eyelid, but no other obvious abnormality. Will start her on some oral and antibiotic for eyedrops and she will call and make a follow-up visit with her eye doctor for evaluation. ED precautions given. Differential Diagnosis Differential diagnosis: Likely conjunctivitis, periorbital cellulitis and other (Blepharitis, stye) Critical Care Time Critical Care Time Critical Care Time: No Discharge Plan Discharge Clinical Impression: Swelling of left lower eyelid Patient Disposition: Home, Self-Care Condition: Stable Additional Instructions: The ause of your swelling is unclear. Please take the antibiotics and use the drops as directed. Call your eye doctor on Friday and schedule a follow-up visit. As discussed, if you develop significant increased swelling, pain, fever, or changes in your vision, please go to the ER immediately for further evaluation and treatment. Your blood pressure was elevated above 120/80 today at Urgent Care. This puts you above the threshold for follow up. Please schedule a followup visit with your personal physician as soon as possible, for further evaluation and treatment. Even blood pressure exceeding 120/80 may indicate pre-hypertension. Patient Language: Hungarian Prescriptions: New polymyxin B sulf-trimethoprim 10,000 unit- 1 mg/mL drops 1 drp LEFT EYE QID 7 Days Qty: 10 0RF amoxicillin-pot clavulanate 875-125 mg tablet 1 tablet PO Q12H 7 Days Qty: 14 0RF No Action multivit with min-folic acid [One-A-Day Women's 50 Plus] 0.4 mg tablet PO mupirocin 2 % ointment 1 applic topical TID Qty: 22 0RF aspirin 81 mg Tablet,Chewable 81 mg PO DAILY magnesium 200 mg Tablet 800 mg PO DAILY sertraline 100 mg tablet See Rx Instructions .ROUTE .COMPLEX Qty: 180 1RF Dose Instruction: TAKE 2 TABLETS BY MOUTH EVERY DAY Rx Instructions: TAKE 2 TABLETS BY MOUTH EVERY DAY atorvastatin 40 mg tablet See Rx Instructions .ROUTE .COMPLEX Qty: 90 2RF Dose Instruction: TAKE 1 TABLET BY MOUTH EVERY DAY Rx Instructions: TAKE 1 TABLET BY MOUTH EVERY DAY ergocalciferol (vitamin D2) 1,250 mcg (50,000 unit) capsule See Rx Instructions .ROUTE .COMPLEX Qty: 12 2RF Dose Instruction: TAKE 1 CAPSULE BY MOUTH ONCE WEEKLY, ON SUNDAYS Rx Instructions: TAKE 1 CAPSULE BY MOUTH ONCE WEEKLY, ON SUNDAYS trazodone 150 mg tablet 150 mg PO QHS Qty: 90 1RF valacyclovir [Valtrex] 1 gram tablet 2,000 mg PO Q12H PRN (Reason: cold sores) Qty: 20 1RF Rx Instructions: 2000 mg PO q12h x1 day prn acute cold sore outbreak; Start: MARE after sx onset buspirone 10 mg tablet See Rx Instructions .ROUTE .COMPLEX Qty: 180 1RF Dose Instruction: TAKE 1 TABLET BY MOUTH TWICE A DAY Rx Instructions: TAKE 1 TABLET BY MOUTH TWICE A DAY metoprolol succinate 50 mg tablet extended release 24 hr See Rx Instructions .ROUTE .COMPLEX Qty: 90 0RF Dose Instruction: TAKE 1 TABLET BY MOUTH DAILY Rx Instructions: TAKE 1 TABLET BY MOUTH DAILY triamterene-hydrochlorothiazid 37.5-25 mg capsule 1 cap PO DAILY Qty: 90 1RF Follow-up/Referrals: Chelsey Mansfield MD [Primary Care Provider] - Time of Disposition: 14:16
== END 2024-05-22 14:23 | disposition home or self-care (01) ==
PROVIDERS: Emergency Provider Nurse Practitioner; PCP Family Medicine
DX: H02.845 Edema of left lower eyelid (principal); I10 Essential (primary) hypertension; Z85.44 Personal history of malignant neoplasm of other female genital organs; Z86.16 Personal history of COVID-19; Z79.82 Long term (current) use of aspirin
CPT/HCPCS: 99213; G0463

== ENCOUNTER 2024-08-14 10:34 | Emergency (ER) | payer MEDICARE, SELFPAY ==
--- NOTE | ~2024-08-14 | XR_ITS ---
XR abdomen/kub 1V 08/14/2024 11:17 INDICATION: Right CVA tenderness TECHNIQUE: KUB COMPARISON: None FINDINGS: Bowel gas pattern is normal. There are cholecystectomy clips. There is no evidence of free air, mass, organomegaly, ascites or obstruction. No abnormal calculi are seen. There are pelvic phle boliths. The bones appear intact. IMPRESSION: 1: No acute abdominal abnormality identified. Reviewed, dictated and finalized at location B.
[2024-08-14 10:46] VITALS: BP 136/75; PULSE 82; RESP 16; TEMP 36.8; O2SAT 100
--- NOTE | 2024-08-14 10:59 | ED_ITS ---
HPI - General Adult General Chief complaint: Abdominal Pain Stated complaint: R SIDE/ABD PAIN Time Seen by Provider: 08/14/24 11:00 Source: patient Mode of arrival: ambulatory Limitations: no limitations History of Present Illness HPI narrative: 63-year-old female patient presents to the [facility] with complaints of right-sided abdominal pain and right-sided lower back pain. Patient states she has been having this pain for awhile . Patient states she has been seeing a chiropractor for the last couple of days her right-sided abdominal and lower back pain has gotten worse. Patient states she did have a little bit of burning with urination yesterday but states she has now developed some watery diarrhea and has had some nausea but denies vomiting. Denies fevers body aches or chills that she is aware of. But states that her appetite has decreased. Last time she ate was last night. Related Data Home Medications ?Medication ?Instructions ?Recorded ?Confirmed ?Last Taken ?Type aspirin 81 mg chewable tablet 81 mg PO DAILY 11/22/19 05/22/24 Unknown History magnesium 200 mg tablet 800 mg PO DAILY 01/03/20 05/22/24 Unknown History multivitamin with minerals-folic tablet PO 10/24/23 04/21/24 Unknown History acid 0.4 mg tablet (One-A-Day Women's 50 Plus) Allergies Allergy/AdvReac Type Severity Reaction Status Date / Time doxycycline Allergy Mild Hyperactive Verified 08/14/24 10:46 cefuroxime Allergy Unknown reaction Verified 08/14/24 10:46 not available erythromycin base Allergy Unknown Nausea Verified 08/14/24 10:46 lisinopril Allergy Unknown Unknown Verified 08/14/24 10:46 Review of Systems Review of Systems: CONSTITUTIONAL: Denies fever, chills, or sweats. EYES: Denies visual changes, redness, or discharge. ENT: Denies rhinorrhea, congestion, sore throat, or otalgia. CARDIOVASCULAR: Denies chest pain, palpitations, or edema. RESPIRATORY: Denies cough or dyspnea. GASTROINTESTINAL: Positive right-sided abdominal pain, nausea, denies vomiting, positive diarrhea. GENITOURINARY: positive dysuria denies hematuria. SKIN: Denies rash or itching. MUSCULOSKELETAL: positive right-sided low back pain, denies joint pain, or myalgia. NEUROLOGIC: Denies headache, numbness, or weakness. PSYCHIATRIC: Denies anxiety or depression. [facility] Past Medical History Medical History Abnormal TSH Screening for osteoporosis Frontal headache Vertigo History of chicken pox History of mumps Choriocarcinoma (~1989) Anal fissure (~2000) anal sphincterectomy History of 2019 novel coronavirus disease (COVID-19) D-dimer, elevated Syncope COVID-19 ruled out Cyst of kidney, acquired Essential (primary) hypertension Hemangioma of intra-abdominal structures Surgical History Surgical History History of hemorrhoidectomy Hx of cholecystectomy (~07/12/14) Family History Family History Mother Hypertension Heart disease Pacemaker Lung cancer Father Diabetes mellitus Depression Hypertension Heart disease Bipolar disorder (manic depression) Daughter Age: 36 No problems noted. Daughter Age: 34 No problems noted. Grandparent , in her 80s Amputation of leg Grandparent , in his 70s No problems noted. Grandparent , in her 60s Breast cancer Grandparent , in his 70s No problems noted. Social History Social History Smoking status: Never smoker Alcohol intake: never Substance use: never Do You Feel Safe in your Home?: Yes Lack of Transportation: No Lack of Food: Never True Current Housing: I Have Housing Concerned About Future Housing: No Difficulty Paying Gas/Electric Bills: No Difficulty Paying for Meds: No Currently Unemployed: No Education: Trade/Vocational Certificate Living arrangements: with family Gender identity (if verbalized by the patient): Female Sexual Orientation (if Verbalized by the Patient): Straight or Heterosexual Spiritual care concerns: No Comments At the time of my signature I agree with nursing past medical history, surgical, social, and family history. There is no relevant family history pertinent to the presenting complaint. Exam Narrative: GENERAL: Well-appearing, well-nourished, and in no acute distress. HEAD: Normocephalic, atraumatic. EYES: PERRLA and EOMI. ENT: Nares clear, no rhinorrhea or epistaxis. Mucous membranes moist. NECK: Supple. No lymphadenopathy CHEST: Clear to auscultation. No respiratory distress. HEART: Regular rate and rhythm. No murmur heard. Normal peripheral pulses. ABDOMEN: Soft, flat, nondistended. No guarding, rebound tenderness, or rigid. No pulsatilla masses. hyperactive Bowel sounds present in bilateral upper quadrants. tenderness noted to right upper quadrant and right lower quadrant on palpation.No organomegaly. Negative Dolan?s sign. No periumbicial tenderness. No Supra public tenderness or distension. Good femoral pulses bilaterally. No hernia noted. No scars or surface trauma. Right-sided CVA tenderness on percussion EXTREMITIES: Normal range of motion. No edema. SKIN: Warm, dry, no rash. NEURO: No focal deficits. Alert and oriented x3. Course Course Level of Care: Express Care Visit Reevaluation(s) Reevaluation #1: re-evaluated patient and notified patient that her x-ray came back showing no evidence for any acute abdominal issues no evidence for kidney stones or any acute bowel obstruction. Discussed with her that based on her symptoms and the fact that they are getting worse I do recommend that she go to the ER for further evaluation. Patient is in agreement with this plan care is okay to be transferred to [facility]. Date: 08/14/24 Time: 11:35 Vital Signs Vital signs: Vital Signs Temperature 36.8 C 08/14/24 10:46 Pulse Rate 82 08/14/24 10:46 Respiratory Rate 16 08/14/24 10:46 Blood Pressure 136/75 08/14/24 10:46 Pulse Oximetry 100 08/14/24 10:46 Temperature 36.8 C 08/14/24 10:46 Pulse Rate 82 08/14/24 10:46 Respiratory Rate 16 08/14/24 10:46 Blood Pressure 136/75 08/14/24 10:46 Pulse Oximetry 100 08/14/24 10:46 Vital signs reviewed. Transfer Transfered to: [facility] Transportation: Other ( Private vehicle with ) Accepting physician: Dr. Lopez Transfer comments: spoke with Dr. Lopez and gave report on patient we are sending over for evaluation of right-sided upper lower quadrant abdominal pain as well as right- sided lower back pain. KUB was negative urine dip she did show 1+ leukocytes and trace blood but evidence and physical exam does not really suggest UTI. Patient has had worsening symptoms over the last day or 2 including diarrhea, nausea lack of appetite. Dr. Reeves is aware the plan of care and accepts patient for transfer at this time Medical Decision Making MDM Narrative Medical decision making narrative: urine dip showed possible leukocytes and some blood. Patient was not able to give enough to send out for culture. Discussed with patient we will do a KUB to rule out any kidney stones given her symptoms but if this is negative will most likely refer her to the ER for further evaluation and treatment since she does have right-sided quadrant pain. Differential Diagnosis Differential Diagnosis: Differential diagnosis: Uncomplicated lower UTI, uncomplicated UTI, pyelonephritis Appendicitis, ovarian torsion, gallbladder disease, ovarian torsion, pancreatitis, lower lobe pneumonia,AAA, AMI or ACS, DKA, diverticulitis. Vital Signs Vital Signs: Vital Signs Temperature 36.8 C 08/14/24 10:46 Pulse Rate 82 08/14/24 10:46 Respiratory Rate 16 08/14/24 10:46 Blood Pressure 136/75 08/14/24 10:46 Pulse Oximetry 100 08/14/24 10:46 Temperature 36.8 C 08/14/24 10:46 Pulse Rate 82 08/14/24 10:46 Respiratory Rate 16 08/14/24 10:46 Blood Pressure 136/75 08/14/24 10:46 Pulse Oximetry 100 08/14/24 10:46 Lab Data Labs: Lab Results 08/14/24 Range/Units 11:18 POC Urine Color Yellow POC Urine Clarity Clear POC Urine pH 7.0 POC Ur Specif [place] 1.020 POC Urine Protein Negative (Negative) POC Ur Glucose (UA) Negative (Negative) POC Urine Ketones Negative (Negative) POC Urine Blood Trace (Negative) POC Urine Nitrite Negative (Negative) POC Urine Bilirubin Negative (Negative) POC Urine Urobilinogen 0.2 POC U Leukocyte Esteras 1+ (Negative) Imaging Data Radiologist's impression: [facility] [address] [place] [address] XRay Report Signed Patient: Faviola Cespedes : 1960 MR#: [id number] Age: 63 Acct:[id number] Loc: [facility] ADM Date: 08/14/24Attending Dr: Ordering Physician: Estela Beatty APRN Date of Service: 08/14/24 Procedure(s): XR abdomen/kub 1V Accession Number(s): [id number] cc: Anthony Mansfield MD; Estela Beatty APRN~ XR abdomen/kub 1V 08/14/2024 11:17 INDICATION: Right CVA tenderness TECHNIQUE: KUB COMPARISON: None FINDINGS: Bowel gas pattern is normal. There are cholecystectomy clips. There is no evidence of free air, mass, organomegaly, ascites or obstruction. No abnormal calculi are seen. There are pelvic phleboliths. The bones appear intact. IMPRESSION: 1: No acute abdominal abnormality identified. Reviewed, dictated and finalized at location B. Please be advised this is a medical document. It is intended for xuni-vd-vweg communication. It is written in medical language and may contain unfamiliar abbreviations or verbiage. Medical documents are intended to carry relevant information, facts as evident, and the clinical opinion of the practitioner at the time of the encounter. This report may have been done utilizing a voice recognition system. Attempts have been made to correct errors. However, there may be uncorrected grammatical, spelling, and recognition errors present. The file time of this note does not necessarily represent the time of service. Dictated By: Gavin Mccray MD 08/14/24 1121 Signed By: <Electronically signed by Gavin Mccray MD in OV> Critical Care Time Critical Care Time Critical Care Time: No Discharge Plan Discharge Clinical Impression: Right sided abdominal pain, Acute right-sided back pain Patient Disposition: Acute Care Hospital Condition: Stable Instructions: Antibiotic Form Patient Language: Wolof Prescriptions: No Action multivit with min-folic acid [One-A-Day Women's 50 Plus] 0.4 mg tablet PO aspirin 81 mg Tablet,Chewable 81 mg PO DAILY magnesium 200 mg Tablet 800 mg PO DAILY ergocalciferol (vitamin D2) 1,250 mcg (50,000 unit) capsule See Rx Instructions .ROUTE .COMPLEX Qty: 12 2RF Dose Instruction: TAKE 1 CAPSULE BY MOUTH ONCE WEEKLY, ON SUNDAYS Rx Instructions: TAKE 1 CAPSULE BY MOUTH ONCE WEEKLY, ON SUNDAYS valacyclovir [Valtrex] 1 gram tablet 2,000 mg PO Q12H PRN (Reason: cold sores) Qty: 20 1RF Rx Instructions: 2000 mg PO q12h x1 day prn acute cold sore outbreak; Start: MARE after sx onset buspirone 10 mg tablet See Rx Instructions .ROUTE .COMPLEX Qty: 180 1RF Dose Instruction: TAKE 1 TABLET BY MOUTH TWICE A DAY Rx Instructions: TAKE 1 TABLET BY MOUTH TWICE A DAY triamterene-hydrochlorothiazid 37.5-25 mg capsule 1 cap PO DAILY Qty: 90 1RF sertraline 100 mg tablet See Rx Instructions .ROUTE .COMPLEX Qty: 180 1RF Dose Instruction: TAKE 2 TABLETS BY MOUTH EVERY DAY Rx Instructions: TAKE 2 TABLETS BY MOUTH EVERY DAY atorvastatin 40 mg tablet See Rx Instructions .ROUTE .COMPLEX Qty: 90 2RF Dose Instruction: TAKE 1 TABLET BY MOUTH EVERY DAY Rx Instructions: TAKE 1 TABLET BY MOUTH EVERY DAY metoprolol succinate 50 mg tablet extended release 24 hr See Rx Instructions .ROUTE .COMPLEX Qty: 90 0RF Dose Instruction: TAKE 1 TABLET BY MOUTH DAILY Rx Instructions: TAKE 1 TABLET BY MOUTH DAILY trazodone 150 mg tablet 150 mg PO QHS Qty: 90 1RF Follow-up/Referrals: Anthony Mansfield MD [Primary Care Provider] - Time of Disposition: 11:34
[2024-08-14 11:20] LABS: EDUAAPPEAR Clear; EDUABILI Negative (Negative); EDUABLOOD Trace (Negative); EDUACOLOR1 Yellow; EDUAGLUCOSE Negative (Negative); EDUAKETONE Negative (Negative); EDUALEUKO 1+ (Negative); EDUANITRATE Negative (Negative); EDUAPROTEIN Negative (Negative); EDUAUROBILI 0.2
== END 2024-08-14 11:37 | disposition short-term general hospital (02) ==
PROVIDERS: Emergency Provider Nurse Practitioner Family; PCP Family Medicine
DX: R10.9 Unspecified abdominal pain (principal); M54.50 Low back pain, unspecified; I10 Essential (primary) hypertension
CPT/HCPCS: 74018; 81003; 99213; G0463

== ENCOUNTER 2024-08-14 12:05 | Emergency (ER) | payer MEDICARE, SELFPAY ==
[2024-08-14] VITALS (8 sets, daily range): BP systolic 134–175; BP diastolic 70–93; PULSE 59–65; RESP 14–16; TEMP 36.7; O2SAT 95–100
--- NOTE | ~2024-08-14 | CT_ITS ---
EXAMINATION: CT abdomen pelvis w con DATE: 08/14/2024 13:39 INDICATION: Right lower quadrant pain TECHNIQUE: Computed tomography (CT) of the abdomen and pelvis was performed with 100 cc Omnipaque 350 intravenous contrast. The dose-length product was 555.00 mGy-cm. Automated exposure control and iter ative reconstruction technique were employed. COMPARISON: MRI dated 03/30/2014. FINDINGS: There is lower lobe atelectasis/scarring bilaterally. Heart size normal. Moderate size hiat al hernia. There is a 5 x 4.3 cm right hepatic lobe mass with peripheral nodular paddling of contrast , compatible with known hemangioma. There is a cluster of small cysts in the right hepatic lobe with adjacent coarse calcifications. The spleen, pancreas, adrenal glands are unremarkable. There are bila teral renal cysts, largest in the left kidney measuring 8.4 cm. There is no significant vascular abno rmality. No lymphadenopathy. No free air or free fluid. Colonic diverticulosis without evidence for d iverticulitis. The cecum is midline. The appendix is not positively visualized. There is no periceca l inflammatory change to suggest appendicitis. Severe lumbar spondylosis with grade 1 spondylolisthes is at L3-4. IMPRESSION: 1. No acute abdominal abnormality. 2: Hemangioma of the right hepatic lobe measuring 5 cm. 3: Liver and renal cysts. 4: Moderate size hiatal hernia. Reviewed, dictated and finalized at location B.
--- OUTSIDE RECORDS SUMMARY | 2024-08-14 12:07 | XMS_ITS | Clinical Summary ---
Author Organization [facility] Address [address], [place] [address] Phone Care Team Providers Care Mower Mechanic Name Role Phone Unavailable Primary Care Provider Unavailabl e Medications Medication Sig Dispensed Refills Start Date End Date Status ergocalciferol (VITAMIN D-2) 60395 units capsule 1 weekly 05/23/2014 Activ e ALPRAZolam (XANAX) 0.25 MG tablet 05/23/2014 Active Omeprazole-Sodium Bicarbonate (ZEGERID OTC) 20-1100 MG capsule 04/25/2014 Active triamterene-hydroCHLOROthiazide (DYAZIDE) 37.5-25 MG per capsule 04/25/2014 Active citalopram (CeleXA) 20 MG tablet 04/25/2014 Active nebivolol (BYSTOLIC) 5 MG tablet 04/25/2014 Active Active Problems Problem Noted Date Diagnosed Date Chronic kidney disease, stage 3 (moderate) 09/12 Hypertensive chronic kidney disease with stage 1 through stage 4 chronic kidney disease, or unspecified chronic kidney disease 09/12/2014 Calculus of kidney 08/15/2014 Essential (primary) hypertension 04/25/2014 Pain in joint 04/25/2014 Gastro-esophageal reflux disease without esophag itis 04/25/2014 Other malaise and fatigue 04/25/2014 Overview (08/08/2018): Converted unresolved ICD9, potential mismatch. Family History Medical History Relation Comments Diabetes mellitus Father Hypertensive disorder Mother Relation Status Comments Father Mother Social History Tobacco Use Types Packs/Day Years Used Date Smoking Tobacco: Never Assessed Sex and Gender Information Value Date Recorded Sex Assigned at Not on file Gender Identity Not on file Sexual Orientation Not on file Last Filed Vital Signs Vital Sign Reading Time Taken Comments Blood Pressure 118/50 03/13/2015 12:01 AM CDT Pulse 72 03/13/2015 12:01 AM CDT Temperature 37.8 C (100 F) 03/13/2015 12:01 AM CDT Respiratory Rate - - Oxygen Saturation - - Inhaled Oxygen Concentration - - Weight 97.5 kg (215 lb) 03/13/2015 12:01 AM CDT Height 162.6 cm (5' 4 ) 03/13/2015 12:01 AM CDT Body Mass Index 36.9 03/13/2015 12:01 AM CDT Plan of Treatment Not on file
[2024-08-14 12:27] LABS: Basophils Percent Auto 0.3 % (0.2-1.2); Eosinophils Absolute Auto 0.4 K/mm3 (0-0.3); Eosinophils Percent Auto 4.3 % (0-4.4); Hematocrit 38.3 % (37.0-47.0); Hemoglobin 12.1 g/dL (12.0-15.0); Immature Granulocyte Absolute 0.05 K/mm3 (0.00-0.031); Immature Granulocyte Percent A 0.6 % (0-0.5); Lymphocytes Absolute Auto 1.13 K/mm3 (0.9-3.2); Lymphocytes Percent Auto 12.4 % (18.3-44.2); Mean Corpuscular HGB Conc 31.6 g/dl (32-36); Mean Corpuscular Hemoglobin 27.3 pg (26-34); Mean Corpuscular Volume 86.3 fl (80-100); Mean Platelet Volume 9.3 fl (7.4-10.4); Monocytes Absolute Auto 0.5 K/mm3 (0.1-0.6); Monocytes Percent Auto 5.5 % (2.6-8.5); Neutrophils Percent Auto 76.9 % (45.5-73.1); Platelet Count Result 247 k/mm3 (150-375); Red Blood Count 4.44 M/mm3 (4.2-5.4); Red Cell Distribution Width 14.1 % (11.5-14.5); White Blood Count 9.1 K/mm3 (4.5-10.0)
[2024-08-14 12:36] LABS: Alanine Aminotransferase 20 U/L (6-35); Albumin Level 4.6 g/dL (3.5-5.1); Alkaline Phosphatase 128 U/L (38-126); Anion Gap 12 mmol/L (4-12); Aspartate Amino Transferase 26 U/L (14-36); Bilirubin,Total 0.7 mg/dL (0.2-1.3); Blood Urea Nitrogen 15 mg/dL (7-17); Calcium 9.4 mg/dL (8.4-10.2); Carbon Dioxide 27 mmol/L (22-30); Chloride 99 mmol/L (98-107); Estimated CRCL calculation 40 ml/min; Estimated Glomerular Filt Rate 43; Glucose 115 mg/dL (65-110); Lipase 91 U/L (23-300); Potassium 3.7 mmol/L (3.4-5.0); Sodium 138 mmol/L (137-145)
--- NOTE | 2024-08-14 12:44 | PC.NURSE ---
patient complaining of lower back pain. raised HOB and provided warm blanket to lower back. patient more comfortable.
--- OUTSIDE RECORDS SUMMARY | 2024-08-14 13:00 | XMS_ITS | Clinical Summary ---
Author Organization [facility] Address [address], [place] [address] Phone Care Team Providers Care Clinical Support Associate Name Role Phone Unavailable Primary Care Provider Unavailabl e Medications Medication Sig Dispensed Refills Start Date End Date Status ergocalciferol (VITAMIN D-2) 32717 units capsule 1 weekly 05/23/2014 Activ e [...]
--- NOTE | 2024-08-14 13:56 | ED_ITS ---
HPI - General Adult General Chief complaint: Abdominal Pain Stated complaint: RLQ pain Time Seen by Provider: 08/14/24 12:52 History of Present Illness HPI narrative: 63-year-old female present to the emergency department for evaluation for right lower quadrant abdominal pain that started last night. It has had diarrhea and does have associated nausea without vomiting. Patient does have a prior history of cholecystectomy. Patient also has prior history of choriocarcinoma. Patient describes right lower quadrant pain that does not radiate to her back. Patient denies any falls or injuries. Patient denies any urinary symptoms. Related Data Home Medications ?Medication ?Instructions ?Recorded ?Confirmed ?Last Taken ?Type aspirin 81 mg chewable tablet 81 mg PO DAILY 11/22/19 05/22/24 Unknown History magnesium 200 mg tablet 800 mg PO DAILY 01/03/20 05/22/24 Unknown History multivitamin with minerals-folic tablet PO 10/24/23 04/21/24 Unknown History acid 0.4 mg tablet (One-A-Day Women's 50 Plus) Allergies Allergy/AdvReac Type Severity Reaction Status Date / Time cefuroxime Allergy Unknown reaction Verified 08/14/24 10:46 not available lisinopril Allergy Unknown Unknown Verified 08/14/24 10:46 doxycycline AdvReac Mild Hyperactive Verified 08/14/24 13:56 erythromycin base AdvReac Unknown Nausea Verified 08/14/24 13:56 Review of Systems 2 Review of Systems: All systems reviewed & are unremarkable except as noted in HPI and below PMFSH Past Medical History Medical History Abnormal TSH Screening for osteoporosis Frontal headache Vertigo History of chicken pox History of mumps Choriocarcinoma (~1989) Anal fissure (~2000) anal sphincterectomy History of 2019 novel coronavirus disease (COVID-19) D-dimer, elevated Syncope COVID-19 ruled out Cyst of kidney, acquired Essential (primary) hypertension Hemangioma of intra-abdominal structures Surgical History Surgical History History of hemorrhoidectomy Hx of cholecystectomy (~07/12/14) Family History Family History Mother Hypertension Heart disease Pacemaker Lung cancer Father Diabetes mellitus Depression Hypertension Heart disease Bipolar disorder (manic depression) Daughter Age: 36 No problems noted. Daughter Age: 34 No problems noted. Grandparent , in her 80s Amputation of leg Grandparent , in his 70s No problems noted. Grandparent , in her 60s Breast cancer Grandparent , in his 70s No problems noted. Social History Social History Smoking status: Never smoker Alcohol intake: never Substance use: never Do You Feel Safe in your Home?: Yes Lack of Transportation: No Lack of Food: Never True Current Housing: I Have Housing Concerned About Future Housing: No Difficulty Paying Gas/Electric Bills: No Difficulty Paying for Meds: No Currently Unemployed: No Education: Trade/Vocational Certificate Living arrangements: with family Gender identity (if verbalized by the patient): Female Sexual Orientation (if Verbalized by the Patient): Straight or Heterosexual Spiritual care concerns: No Exam 2 Narrative: APPEARANCE: Well appearing, no pain, no distress, well-nourished. HEAD: normocephalic, atraumatic. EYES: PERRLA/EOMI, conjunctivae clear. NOSE: Normal no drainage EARS:TMS clear with good light reflex. THROAT: Pharynx clear, no exudate. NECK: Supple. No adenopathy, no masses. RESPIRATORY: Airway patent, respirations nonlabored. Clear to auscultation bilaterally, no rales, rhonchi, wheezing. CARDIOVASCULAR: Regular rate and rhythm without murmurs rubs or gallops. ABDOMINAL: Mild right lower quadrant tenderness to palpation MUSCULOSKELETAL: Moves all extremities. Strength/ROM intact, No edema, No calf tenderness. NEURO: Alert. Cranial nerves II through XII intact. Grossly intact SKIN: Warm, dry. Normal Color Course Vital Signs Vital signs: Vital Signs Temperature 98.0 F 08/14/24 12:06 Pulse Rate 65 08/14/24 12:06 Respiratory Rate 16 08/14/24 12:06 Blood Pressure 154/75 H 08/14/24 12:06 Pulse Oximetry 100 08/14/24 12:06 Oxygen Delivery Room Air 08/14/24 12:06 Temperature 98.0 F 08/14/24 12:06 Pulse Rate 60 08/14/24 15:46 Respiratory Rate 16 08/14/24 15:46 Blood Pressure 134/93 H 08/14/24 15:46 Pulse Oximetry 100 08/14/24 15:46 Oxygen Delivery Room Air 08/14/24 12:06 Medical Decision Making [facility] Narrative Medical decision making narrative: 63-year-old female presented emergency department for evaluation for right lower quadrant pain. Patient is currently afebrile with no leukocytosis and hemoglobin of 12.1. Patient has no acute abnormalities on her CMP, patient does have a creatinine 1.26 with similar to her baseline. CT abdomen pelvis was ordered to evaluate for possible appendicitis and this was negative for acute findings. CT scan was negative. Patient family updated the results of her workup. Patient was encouraged to follow a clear liquid diet for the next few days. Patient was provided Zofran for nausea control. Patient was encouraged of close follow-up with primary care physician potentially with GI. All questions concerns were addressed patient was well-appearing at time of discharge. Differential Diagnosis Differential Diagnosis: Colitis, diverticulitis, appendicitis, gastritis, enteritis, UTI Vital Signs Vital Signs: Vital Signs Temperature 98.0 F 08/14/24 12:06 Pulse Rate 65 08/14/24 12:06 Respiratory Rate 16 08/14/24 12:06 Blood Pressure 154/75 H 08/14/24 12:06 Pulse Oximetry 100 08/14/24 12:06 Oxygen Delivery Room Air 08/14/24 12:06 Temperature 98.0 F 08/14/24 12:06 Pulse Rate 60 08/14/24 15:46 Respiratory Rate 16 08/14/24 15:46 Blood Pressure 134/93 H 08/14/24 15:46 Pulse Oximetry 100 08/14/24 15:46 Oxygen Delivery Room Air 08/14/24 12:06 Lab Data Lab results reviewed: Yes I reviewed the patient's lab results. 08/14/24 12:18 08/14/24 12:18 Labs: Lab Results 08/14/24 08/14/24 Range/Units 12:18 14:00 WBC 9.1 (4.5-10.0) K/mm3 RBC 4.44 (4.2-5.4) M/mm3 Hgb 12.1 (12.0-15.0) g/dL Hct 38.3 (37.0-47.0) % MCV 86.3 (80-100) fl MCH 27.3 (26-34) pg MCHC 31.6 L (32-36) g/dl RDW 14.1 (11.5-14.5) % Plt Count 247 (150-375) k/mm3 MPV 9.3 (7.4-10.4) fl Immature Gran % (Auto) 0.6 H (0-0.5) % Neut % (Auto) 76.9 H (45.5-73.1) % Lymph % (Auto) 12.4 L (18.3-44.2) % [place] % (Auto) 5.5 (2.6-8.5) % Eos % (Auto) 4.3 (0-4.4) % Baso % (Auto) 0.3 (0.2-1.2) % Lymph # (Auto) 1.13 (0.9-3.2) K/mm3 [place] # (Auto) 0.5 (0.1-0.6) K/mm3 Eos # (Auto) 0.4 H (0-0.3) K/mm3 Baso # (Auto) 0.0 (0.0-0.1) K/mm3 Abs Immat Gran (auto) 0.05 H (0.00-0.031) K/mm3 Absolute Neuts (auto) 7.0 H (1.3-6.7) K/mm3 Absolute Nucleated RBC 0.000 (0.0-0.012) K/mm3 Nucleated RBC % 0.0 (0.0-0.2) % PT 13.6 (11.1-14.7) Seconds INR 1.0 APTT 24.1 (22.3-36.8) Seconds Sodium 138 (137-145) mmol/L Potassium 3.7 (3.4-5.0) mmol/L Chloride 99 (98-107) mmol/L Carbon Dioxide 27 (22-30) mmol/L Anion Gap 12 (4-12) mmol/L BUN 15 D (7-17) mg/dL Creatinine 1.26 H (0.7-1.0) mg/dL Estim Creat Clear Calc 40 ml/min Estimated GFR 43 L (59 - ) Glucose 115 H (65-110) mg/dL Lactic Acid 0.6 L (0.7-2.0) mmol/L Calcium 9.4 (8.4-10.2) mg/dL Total Bilirubin 0.7 (0.2-1.3) mg/dL AST 26 (14-36) U/L ALT 20 (6-35) U/L Alkaline Phosphatase 128 H (38-126) U/L Total Protein 8.0 (6.3-8.2) g/dL Albumin 4.6 (3.5-5.1) g/dL Lipase 91 (23-300) U/L Imaging Data Radiologist's impression: Impressions Abdomen/Pelvis CT 08/14/24 13:46 IMPRESSION: 1. No acute abdominal abnormality. 2: Hemangioma of the right hepatic lobe measuring 5 cm. 3: Liver and renal cysts. 4: Moderate size hiatal hernia. Discharge Plan Discharge Clinical Impression: Abdominal pain, Nausea, Diarrhea Patient Disposition: Home, Self-Care Condition: Stable Instructions: Antibiotic Form, Clear Liquid Diet (ED), Acute Nausea and Vomiting (ED), Acute Diarrhea (ED), Abdominal Pain (ED) Additional Instructions: Zofran as needed for nausea control. Clear liquid diet for the next 1-3 days. Have close follow-up with your primary care physician. If you have any worsening symptoms then please call or return to the emergency department. Patient Language: Greek Prescriptions: New ondansetron 4 mg tablet,disintegrating 4 mg PO Q8H PRN (Reason: nausea and vomiting) Qty: 14 0RF No Action multivit with min-folic acid [One-A-Day Women's 50 Plus] 0.4 mg tablet PO aspirin 81 mg Tablet,Chewable 81 mg PO DAILY magnesium 200 mg Tablet 800 mg PO DAILY ergocalciferol (vitamin D2) 1,250 mcg (50,000 unit) capsule See Rx Instructions .ROUTE .COMPLEX Qty: 12 2RF Dose Instruction: TAKE 1 CAPSULE BY MOUTH ONCE WEEKLY, ON SUNDAYS Rx Instructions: TAKE 1 CAPSULE BY MOUTH ONCE WEEKLY, ON SUNDAYS valacyclovir [Valtrex] 1 gram tablet 2,000 mg PO Q12H PRN (Reason: cold sores) Qty: 20 1RF Rx Instructions: 2000 mg PO q12h x1 day prn acute cold sore outbreak; Start: MARE after sx onset buspirone 10 mg tablet See Rx Instructions .ROUTE .COMPLEX Qty: 180 1RF Dose Instruction: TAKE 1 TABLET BY MOUTH TWICE A DAY Rx Instructions: TAKE 1 TABLET BY MOUTH TWICE A DAY triamterene-hydrochlorothiazid 37.5-25 mg capsule 1 cap PO DAILY Qty: 90 1RF sertraline 100 mg tablet See Rx Instructions .ROUTE .COMPLEX Qty: 180 1RF Dose Instruction: TAKE 2 TABLETS BY MOUTH EVERY DAY Rx Instructions: TAKE 2 TABLETS BY MOUTH EVERY DAY atorvastatin 40 mg tablet See Rx Instructions .ROUTE .COMPLEX Qty: 90 2RF Dose Instruction: TAKE 1 TABLET BY MOUTH EVERY DAY Rx Instructions: TAKE 1 TABLET BY MOUTH EVERY DAY metoprolol succinate 50 mg tablet extended release 24 hr See Rx Instructions .ROUTE .COMPLEX Qty: 90 0RF Dose Instruction: TAKE 1 TABLET BY MOUTH DAILY Rx Instructions: TAKE 1 TABLET BY MOUTH DAILY trazodone 150 mg tablet 150 mg PO QHS Qty: 90 1RF Follow-up/Referrals: Anthony Mansfield MD [Primary Care Provider] -
[2024-08-14] MEDS: ONDANSETRON INJ 4 MG/2 ML VIAL IV PUSH (14:05)
[2024-08-14] MEDS: HYDROmorphone HCL INJ (*CRX) 1 MG/ML SYR 0.5 MG IV PUSH (14:05)
[2024-08-14 14:18] LABS: Lactic Acid Reflex 0.6 mmol/L (0.7-2.0)
[2024-08-14 14:28] LABS: Partial Thromboplastin Time 24.1 Seconds (22.3-36.8); Prothrombin Time 13.6 Seconds (11.1-14.7)
== END 2024-08-14 15:48 | disposition home or self-care (01) ==
PROVIDERS: Emergency Provider Emergency Medicine; PCP Family Medicine
DX: R10.31 Right lower quadrant pain (principal); R11.0 Nausea; R19.7 Diarrhea, unspecified; I10 Essential (primary) hypertension; Z85.44 Personal history of malignant neoplasm of other female genital organs; Z90.49 Acquired absence of other specified parts of digestive tract; D18.09 Hemangioma of other sites; K76.89 Other specified diseases of liver; N28.1 Cyst of kidney, acquired; K44.9 Diaphragmatic hernia without obstruction or gangrene; Z79.82 Long term (current) use of aspirin; Z79.899 Other long term (current) drug therapy
CPT/HCPCS: 36415; 74177; 80053; 83605; 83690; 85025; 85610; 85730; 96374; 96375; 99284; J1171; J2405; Q9967

== ENCOUNTER 2025-03-23 02:08 | Day surgery (SDC) | payer MEDICARE, SELFPAY ==
[2025-03-16 10:47] VITALS: BMI 27.1
--- NOTE | 2025-03-16 11:01 | PC.NURSE ---
[facility] has started construction of its new state of the art ER which will open Spring 2026. With this, we anticipate parking may be a challenge for some our surgical patients and families. Parking spaces are limited but are available for all Surgical, obstetrics, and ER patients sharing this lot. If you arrive and find you are having a hard time finding a parking space, please note that we understand the challenges, please drive around the hospital and park near Hospital Entrance 1. When you enter this entrance, you can ask a volunteer to direct or take you back to the surgical waiting area to check in. We appreciate everyone?s understanding of these expected challenges while we build for your future. Report to the Outpatient Waiting Room, entrance under the green pavilion located off [address], at time __0830am on date __03/23/25 . Planned Procedure Time: ___10:30am .? Time changes happen often and if your time is changed the preop area will call you the afternoon before. - You and your visitor will be asked to self-screen and do not enter if you have any COVID symptoms. Please call surgeon if you need to reschedule. - A mask is optional within the hospital at this time. Patients may have clear liquids (water, carbonated beverages, clear teas, apple juice) until 3 hours prior to surgery with a maximum of 20 ounces. - No food from midnight until time of surgery and no smoking, or chewing tobacco (or any form of nicotine). No chewing gum, candy or mints. (0730am) Take only the following medications with a SIP of water on the morning of surgery: NONE DO NOT STOP ANY OF YOUR OTHER PRESCRIPTION MEDICATIONS PRIOR TO SURGERY EXCEPT THE FOLLOWING Hold all vitamins and supplements for 3 days per anesthesiologist. Medications to discontinue per physician HOLD Aspirin or NSAIDS for [address] Ashley Date to take last dose 03/16/25 Please no make-up, nail yi, hairspray, perfume, deodorant, or body powder the day of surgery.? No jewelry (including any body piercings) or valuables the day of surgery, leave them at home.? Please take a shower or bath the night before, or the morning of, surgery with an antibacterial soap. HIBICLEANSE and Antibiotic scrub per Dr Ashley? Wear comfortable, loose fitting clothing.? - Jewelry must be removed prior to entering the operating room.? Rings and piercings that are not removed may be cut off. - The hospital will not accept responsibility for valuables.? - Please leave all valuables, including medications, at home the day of surgery. If you are going home after surgery, a licensed set key driver must drive you home.? - NO public transportation without another adult if you receive anesthesia. - We recommend that an adult stay with you for 24 hours following discharge. - We also recommend that you do not drive, make important decision, drink alcoholic beverages, or take any drugs that were not prescribed by your health care provider for at least 24 hours after your discharge time. Follow any additional instructions given to you from your surgeon. Pt to get labs done tomorrow at [facility], Pt also to get Doppler scheduled via DR Ashley office when we get off phone. Telephone instructions given to ___Patient and BoyFriend and asked if any additional questions and then verbalized understanding. Patient advised to call surgeon office or pre surgery nurse liaison [phone] if any additional questions.
--- OUTSIDE RECORDS SUMMARY | 2025-03-21 08:46 | XMS_ITS | Encounter Summary ---
Author Organization [facility] Address [address] [place] [address] Care Team Providers Care Nuclear Technician Name Role Phone Chelsey Mansfield MD Primary Care Provider + Reason for Referral * Diagnostic Imaging (Routine) - Pending Review Specialty Diagnoses / Procedures Referred By Contac t Referred To Contact Diagnoses Acute embolism and thrombosis of deep veins of right upper extremity (HCC) Procedures US Vein Duplex Upper Extremity Right Limited, Unilateral [facility] Patient Access [facility] [address] [address] Referral ID Status Reason Start Date Expiration Date V isits Requested Visits Authorized [id number] Pending Review 03/17/2025 04/16/2026 1 1 Reason for Visit * Diagnostic Imaging (Routine) - Pending Review Specialty Diagnoses / Procedures Referred By Contac t Referred To Contact Diagnoses Acute embolism and thrombosis of deep veins of right upper extremity (HCC) Procedures US Vein Duplex Upper Extremity Right Limited, Unilateral [facility] Patient Access [address] [address] Referral ID Status Reason Start Date Expiration Date V isits Requested Visits Authorized [id number] Pending Review 03/17/2025 04/16/2026 1 1 Encounter Details Date Type Department Care Team (Latest Contact Info) Description 03/21/2025 8:46 AM CDT - 03/21/2025 11:59 PM CDT Hospital Encounter 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 Gender Identity Not on file Sexual Orientation Not on file documented as of this encounter Discharge Disposition Disposition Code Departure Means Destination Discharge to home or self care documented in this encounter Plan of Treatment Not on file documented as of this encounter Procedures Procedure Name Priority Date/Time Associated Diagnosis Comments US VEIN DUPLEX UPPER EXTREMITY RIGHT LIMITED Schedule Routine, Read Routine (OP Routine) 03/21/2025 10:50 AM CDT Acute embolism and thrombosis of deep veins of right upper extremity (HCC) documented in this encounter Results * US Vein Duplex Upper Extremity Right Limited, Unilateral (03/21/2025 10:50 AM CDT) Anatomical Region Laterality Modality Vascular Right Ultrasound 03/21/2025 9:06 AM CDT Narrative 03/21/2025 10:49 AM CDT Upper Extremity Venous Ultrasound Report Patient Name: GABY SANTANA M : 1960 (64y 3m) Sex: F Study Date: 03/21/2025 09:06:08 AM Floor Clerk: JULIO Bingham Order Provider: LIVIA RODRIGUEZ Quality: Adequate Ref Provider: LIVIA RODRIGUEZ PROCEDURES: Vascular Report: Venous Duplex imaging was performed in the right upper extremity. The internal jugular, subclavian and axillary veins were evaluated for patency, spontaneity and phasicity with Doppler, compression and augmentation maneuvers. The brachial, basilic and cephalic veins were also evaluated with compression maneuvers. INDICATIONS: I82.621 Acute embolism and thrombosis of deep veins of right upper extremity. HISTORY: History of DVT. Torn right rotator cuff. FINDINGS: Right: Venous Doppler signals in the right upper extremity are within normal limits for spontaneity and phasicity; normal response to compression maneuvers. Deep veins involved include the internal jugular vein, subclavian vein, axillary vein, brachial veins, radial veins and ulnar veins. No evidence of superficial vein thrombus in the right upper extremity. Superficial veins involved include the cephalic vein and basilic vein. Comments: Contralateral subclavian vein is imaged for comparison and is patent. CONCLUSIONS: 1. No evidence of acute deep vein thrombosis in the right upper extremity. ATTESTATION: I have reviewed and interpreted the pertinent images and measurements of this study. I attest to the conclusions in the final report that is provided above. Electronically Signed By: Noel Garcia MD 03/21/2025 10:37:02 AM CDT Procedure Note Noel Garcia MD - 03/21/2025 Upper Extremity Venous Ultrasound Report Patient Name: GABY SANTANA M : 1960 (64y 3m) Sex: F Study Date: 03/21/2025 09:06:08 AM Floor Clerk: JULIO Bingham Order Provider: LIVIA RODRIGUEZ Quality: Adequate Ref Provider: LIVIA RODRIGUEZ PROCEDURES: Vascular Report: Venous Duplex imaging was performed in the right upperextremity. The internal jugular, subclavian and axillary veins were evaluated forpatency, spontaneity and phasicity with Doppler, compression and augmentation maneuvers. Thebrachial, basilic and cephalic veins were also evaluated with compression maneuvers. INDICATIONS: I82.621 Acute embolism and thrombosis of deep veins of right upperextremity. HISTORY: History of DVT. Torn right rotator cuff. FINDINGS: Right: Venous Doppler signals in the right upper extremity are withinnormal limits for spontaneity and phasicity; normal response to compression maneuvers. Deepveins involved include the internal jugular vein, subclavian vein, axillary vein,brachial veins, radial veins and ulnar veins. No evidence of superficial vein thrombus in theright upper extremity. Superficial veins involved include the cephalic vein andbasilic vein. Comments: Contralateral subclavian vein is imaged for comparison and ispatent. CONCLUSIONS: 1. No evidence of acute deep vein thrombosis in the right upperextremity. ATTESTATION: I have reviewed and interpreted the pertinent images and measurements ofthis study. I attest to the conclusions in the final report that is provided above. Electronically Signed By: Noel Garcia MD 03/21/2025 10:37:02 AM CDT us Livia Rodriguez MARKETING BUSINESS ANALYST IMG US PROCEDURES Final Re sult documented in this encounter Visit Diagnoses Diagnosis Acute embolism and thrombosis of deep veins of right upper extremity (HCC) documented in this encounter Care Teams Nuclear Technician Relationship Specialty Start Date End Date Chelsey Mansfield MD [address] [facility] [address] [address] PCP - General Family Medicine 03/17/25 documented as of this encounter
[2025-03-23] VITALS (10 sets, daily range): BP systolic 105–130; BP diastolic 49–72; PULSE 59–80; RESP 12–20; TEMP 36.1–36.8; O2SAT 92–100; BMI 27.1
--- OUTSIDE RECORDS SUMMARY | 2025-03-23 02:11 | XMS_ITS | Clinical Summary ---
Author Organization [facility] Address Formerly [facility] [place] [address] Care Team Providers Care Construction Teacher Name Role Phone Livia Sheikh CONTROL TOWER OPERATOR Primary Care Provider [phone] Encounters Date Type Department Care Team Description 02/28/2025 8:11 AM CDT - 02/28/2025 11:59 PM CDT Hospital Encounter [facility] [address], [place] [id number] Livia Sheikh, JONAH Discharge Disposition: Home or Self Care (Routine Discharge) 02/28/2025 Travel from Last 3 Months Social History Tobacco Use Types Packs/Day Years Used Date Smoking Tobacco: Never Assessed Comments Unknown Sex and Gender Information Value Date Recorded Sex Assigned at Female 02/10/2025 10:09 AM CDT Legal Sex Unknown 02/04/2025 8:20 AM CDT Gender Identity Not on file Sexual Orientation Not on file Plan of Treatment Health Maintenance Due Date Last Done Comments Colorectal Cancer Screening Colonoscopy (10 Years) 1958 Hepatitis C 1976 DTaP, Tdap and Td Vaccines ( 1 - Tdap) 1977 Mammogram Screening 1998 Pneumococcal Vaccine: 50+ Ye ars (1 of 1 - PCV) 2008 Zoster Vaccines (1 of 2) 2008 Annual Medicare Wellness Visit 11/21/2023 Dexa Scan (General) 11/21/2023 COVID-19 Vaccine (1 - 2024-2 6 season) 2025 Influenza Adult (#1) 2025 RSV Immunization or 60+ Years (1 - 1-dose 75+ series) 2033 Hepatitis A Vaccines Aged Out No long er eligible based on patient's age to complete this topic Meningococcal B Vaccine Aged Out No l onger eligible based on patient's age to complete this topic Meningococcal Vaccine Aged Out No jim jose juan eligible based on patient's age to complete this topic RSV Immunizations Under 20 Months Aged Out No longer eligible based on patient's age to complete this topic Procedures Procedure Name Priority Date/Time Associated Diagnosis Comments MRI SHOULDER RT WO CON Routine 02/28/2025 9:05 AM CDT Pain in right shoulder Other chronic pain from Last 3 Months Results * MRI SHOULDER RT WO CON (02/28/2025 9:05 AM CDT) Anatomical Region Laterality Modality Shoulder Magnetic Resonan ce 03/01/2025 10:3 2 AM CDT Impressions 03/01/2025 10:44 AM CDT IMPRESSION: Full-thickness tear anterior rim or in region supraspinatus tendon. Question partial thickness capsular surface tear of the anterior superior aspect of the infraspinatus tendon. Signal abnormality in the tendon the long head of the biceps, question longitudinal tearing versus tendinitis or tendinosis. Joint effusion bursal fluid collections. Mild arthritis acromioclavicular joint. Ordered By: LIVIA AGUILAR Interpreted By: Medardo Johnson MD, 03/01/2025 10:32 AM Narrative 03/01/2025 10:44 AM CDT [facility] [place] [address] 02/28/2025, 8:49 AM. HISTORY: Right shoulder pain. Limited range of motion for 9 months. EXAM: MRI the right shoulder without contrast. MR imaging was performed in the axial, the oblique sagittal and the oblique coronal planes utilizing T1, fat sat proton density and fat sat T2 sequence images. No comparison. FINDINGS: Full-thickness tear in the anterior rim rent region supraspinatus tendon. Possible partial thickness capsular surface tear in the anterior superior aspect of the infraspinatus tendon. Glenohumeral joint effusion is present. Fluid extends through the rotator cuff tear into the subacromial and subdeltoid bursa. There is heterogeneous signal in the proximal biceps tendon, question partial tear in the proximal biceps tendon versus tendinitis or tendinosis. 7 mm superior subluxation of the head of humerus on the glenoid the scapula narrowing the subacromial space. Mild arthritis acromioclavicular joint with minimal inferior spurring. No marrow replacement or gross bone destruction humeral head or neck nor glenoid the scapula. No periarticular soft tissue mass. Procedure Note Medardo Johnson MD - 03/01/2025 [id number] [place] [address] 02/28/2025, 8:49 AM. HISTORY: Right shoulder pain. Limited range of motion for 9 months. EXAM: MRI the right shoulder without contrast. MR imaging was performed in the axial, the oblique sagittal and theoblique coronal planes utilizing T1, fat sat proton density and fat sat [id number] images. No comparison. FINDINGS: Full-thickness tear in the anterior rim rent regionsupraspinatus tendon. Possible partial thickness capsular surface tear inthe anterior superior aspect of the infraspinatus tendon. Glenohumeraljoint effusion is present. Fluid extends through the rotator cuff tearinto the subacromial and subdeltoid bursa. There is heterogeneous signalin the proximal biceps tendon, question partial tear in the proximalbiceps tendon versus tendinitis or tendinosis. 7 mm superior subluxationof the head of humerus on the glenoid the scapula narrowing thesubacromial space. Mild arthritis acromioclavicular joint with minimalinferior spurring. No marrow replacement or gross bone destruction humeralhead or neck nor glenoid the scapula. No periarticular soft tissue mass. IMPRESSION: Full-thickness tear anterior rim or in region supraspinatus tendon.Question partial thickness capsular surface tear of the anterior superioraspect of the infraspinatus tendon. Signal abnormality in the tendon thelong head of the biceps, question longitudinal tearing versus tendinitisor tendinosis. Joint effusion bursal fluid collections. Mild arthritisacromioclavicular joint. Ordered By: LIVIA AGUILAR Interpreted By: Medardo Johnson MD, 03/01/2025 10:32 AM us Livia Aguilar CONTROL TOWER OPERATOR MRI Final Resul t from Last 3 Months Insurance [facility] MEDICARE Care Teams Construction Teacher Relationship Specialty Start Date End Date Livia Sheikh NP [address] [place] [address] PCP - General Nurse Practitioner Family 02/10/25
--- OUTSIDE RECORDS SUMMARY | 2025-03-23 02:11 | XMS_ITS | Clinical Summary ---
Author Organization [facility] Address [address] [place] [address] Care Team Providers Care Phlebotomy Services Representative Name Role Phone Chelsey Mansfield MD Primary Care Provider + Encounters Date Type Department Care Team Description 03/21/2025 8:46 AM CDT - 03/21/2025 11:59 PM CDT Hospital Encounter [facility] [address] [place] [id number] Acute embolism and thrombosis of deep veins of right upper extremity (HCC) Discharge Disposition: Discharge to home or self care from Last 3 Months Social History Tobacco Use Types Packs/Day Years Used Date Smoking Tobacco: Never Assessed Comments Unknown Sex and Gender Information Value Date Recorded Sex Assigned at Not on file Legal Sex Female 3:52 AM [employer] Gender Identity Not on file Sexual Orientation Not on file Plan of Treatment Health Maintenance Due Date Last Done Comments Breast Cancer Screening-Mammogram 1958 Colon Cancer Screening-Colonoscopy 1958 Depression Screening 1958 Fall Risk Assessment 1958 Hepatitis C Screening 1958 Osteoporosis Screening-Bone Density Scan 1958 Hepatitis B Screening 1976 Pneumococcal vaccine 65+ (1 of 1 - PCV) 2008 Zoster Vaccine (1 of 2) 2008 Well Visit 65+ 11/21/2023 Covid-19 Vaccine (3 - 2024-2 6 season) 2025 02/02/2021, 01/12/2021 Influenza Vaccine (#1) 2025 4, 03/04/2023, 03/09/2021, Additional history exists DTaP/Tdap/Td Vaccine (2 - Td or Tdap) 03/11/2028 03/11/2018, 01/18/2003 Procedures Procedure Name Priority Date/Time Associated Diagnosis Comments US VEIN DUPLEX UPPER EXTREMITY RIGHT LIMITED Schedule Routine, Read Routine (OP Routine) 03/21/2025 10:50 AM CDT Acute embolism and thrombosis of deep veins of right upper extremity (HCC) from Last 3 Months Results * US Vein Duplex Upper Extremity Right Limited, Unilateral (03/21/2025 10:50 AM CDT) Anatomical Region Laterality Modality Vascular Right Ultrasound 03/21/2025 9:06 AM CDT Narrative 03/21/2025 10:49 AM CDT Upper Extremity Venous Ultrasound Report Patient Name: GABY SANATNA M : 1960 (64y 3m) Sex: F Study Date: 03/21/2025 09:06:08 AM [employer]ofer [employer] Coating: JULIO Bingham Order Provider: LIVIA RODRIGUEZ Quality: [...] Sex: F Study Date: 03/21/2025 09:06:08 AM Roofer [employer] Coating: JULIO Bingham Order Provider: LIVIA RODRIGUEZ Quality: [...] 03/21/2025 10:37:02 AM CDT us Livia Rodriguez NP IM US PROCEDURES Final Re sult from Last 3 Months Insurance [facility] [id number] [facility] MEDICARE [facility] MED[facility] Address: [facility] [address] [place] [address] Care Teams Phlebotomy Services Representative Relationship Specialty Start Date End Date Chelsey Mansfield MD [address] [facility] [address] [place] [id number] PCP - General Family Medicine 03/17/25
--- NOTE | 2025-03-23 07:23 | WPDHPUPDATE1 ---
History and Physical Update Update Date/Time: 03/23/25 07:23 History and Physical has been reviewed, including an updated exam of the patient. There are NO changes in the patient's condition. Risks, benefits, and alternatives have been discussed and questions answered. Patient agrees to proceed with procedure.
[2025-03-23] MEDS: LACTATED RINGERS 1,000 ML 30 ML IV CONT ×2 (09:00→13:38)
[2025-03-23] MEDS: ACETAMINOPHEN 500 MG TABLET 1000 MG PO (09:18)
[2025-03-23] MEDS: CELECOXIB 200 MG CAPSULE PO (09:18)
--- NOTE | 2025-03-23 09:29 | WPDANESEPPF ---
Anes - Initial Pre Proc Eval Procedure: Operation Date: 03/23/25 10:30 Proposed Procedures p Right Rotator Cuff Repair - Toby Ashley MD Date/Time: 03/23/25 09:29 Surgeon: Toby Ashley MD Pre Op Diagnosis: Right Rot Cuff tear Patient Data Age: 64 Gender: F Height: 1.65 m Weight: 74 kg Allergies Allergy/AdvReac Type Severity Reaction Status Date / Time cefuroxime Allergy Unknown reaction Verified 03/16/25 10:39 not available lisinopril Allergy Unknown Unknown Verified 03/16/25 10:39 doxycycline AdvReac Mild Hyperactive Verified 03/16/25 10:39 erythromycin base AdvReac Unknown Nausea Verified 03/16/25 10:39 Home Medications ?Medication ?Instructions ?Recorded ?Confirmed ?Type aspirin 81 mg chewable tablet 81 mg PO DAILY 11/22/19 03/16/25 History Held on 03/16/25. Instructions: .Provider Order magnesium 200 mg tablet 800 mg PO DAILY 01/03/20 03/16/25 History multivitamin with minerals-folic 1 tablet PO DAILY 10/24/23 03/16/25 History acid 0.4 mg tablet (One-A-Day Women's 50 Plus) atorvastatin 40 mg tablet See Rx Instructions .Route 06/21/24 03/16/25 Rx .COMPLEX #90 tabs valacyclovir 1 gram tablet 1,000 mg PO Q8H #21 tabs 08/18/24 03/16/25 Rx Held on 03/16/25. Instructions: Patient Condition ergocalciferol (vitamin D2) 1,250 See Rx Instructions .Route 09/27/24 03/16/25 Rx mcg (50,000 unit) capsule .COMPLEX #12 caps trazodone 150 mg tablet 150 mg PO QHS #90 tabs 01/25/25 03/16/25 Rx triamterene 37.5 1 cap PO DAILY #90 caps 03/08/25 03/16/25 Rx mg-hydrochlorothiazide 25 mg capsule meloxicam 15 mg tablet 15 mg PO DAILY #90 tabs 03/10/25 03/16/25 Rx Held on 03/16/25. Instructions: Patient no longer taking chlorhexidine gluconate 4 % 1 applic topical ONCE #237 mL 03/11/25 03/16/25 Rx topical liquid (Hibiclens) clindamycin phosphate 1 % topical 1 applic topical DAILY #60 grams 03/11/25 03/16/25 Rx gel buspirone 10 mg tablet See Rx Instructions .Route .COMPLEX 03/16/25 03/16/25 History metoprolol succinate 50 mg See Rx Instructions .Route .COMPLEX 03/16/25 03/16/25 History tablet,extended release 24 hr sertraline 100 mg tablet See Rx Instructions .Route .COMPLEX 03/16/25 03/16/25 History Patient hx anesthesia problems: none Family hx anesthesia problems: none Results Review: All pre-operative results and documents have been reviewed as part of the pre-operative evaluation. 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 Daughter Age: 35 No problems noted. Grandparent , in her 80s Amputation of leg Grandparent , in his 70s No problems noted. Grandparent , in her 60s Breast cancer Grandparent , in his 70s No problems noted. Social History Social History Smoking status: Never smoker Second hand tobacco smoke exposure: Yes Alcohol intake: never Substance use: never Do You Feel Safe in your Home?: Yes Lack of Transportation: No Lack of Food: Never True Current Housing: I Have Housing Concerned About Future Housing: No Difficulty Paying Gas/Electric Bills: No Difficulty Paying for Meds: No Currently Unemployed: No Education: Trade/Vocational Certificate Living arrangements: with family Gender identity (if verbalized by the patient): Female Sexual Orientation (if Verbalized by the Patient): Straight or Heterosexual Spiritual care concerns: No Anes - Eval Final PreProcedure Day of Procedure 03/23/25 09:29 Patient weight: overweight Heart: regular rate and rhythm Lungs: clear to auscultation Airway: Mallampati scale class II Neurological: alert and oriented Last oral intake: >/= 8 hours ASA classification: III Emergent: no Anesthetic plan: proceed Anesthesia type and monitoring: general ETT and standard monitoring Results Review: All pre-operative results and documents have been reviewed as part of the pre-operative evaluation. Informed Consent: The patient's anesthetic plan and its attendant risks and benefits were discussed with the patient/family/POA. Questions were solicited and answers provided to the satisfaction of the patient/family/POA.
[2025-03-23] MEDS: ceFAZolin 2 GM in SODIUM CHLORIDE 0.9% IV 50 ML 100 ML IVPB (11:32)
[2025-03-23] MEDS: BUPIVACAINE/EPINEPHRINE 0.5% 50 ML VIAL 30 ML INFILTRATE (12:17)
--- NOTE | 2025-03-23 13:22 | W.PM.PROC2 ---
Procedure Note - Detailed Date of Procedure 03/23/25 Pre-op Diagnosis Right Rot Cuff tear Post-op Diagnosis Same Procedure Performed REPAIR RIGHT ROTATOR CUFF Surgeon Toby Ashley MD Anesthesia General Description of Procedure THE PATIENT WAS TAKEN TO THE OPERATING ROOM AND THEN INTUBATED AND PLACED IN THE BEACH CHAIR POSITION. THE RIGHT UPPER EXTREMITY WAS PREPPED AND DRAPED IN THE NORMAL STERILE FASHION. AN INCISION WAS MADE IN BETWEEN THE SARAH BETH-LATERAL ACROMION AND THE AC JOINT. THE FASCIA WAS IDENTIFIED. NEXT A MINI OPEN INCISION WAS MADE THROUGH THE DELTOID MUSCLE EXPOSING THE SUBACROMIAL SPACE. A LIMITED ACROMIOPLASTY WAS PREFORMED. THE ROTATOR CUFF WAS IDENTIFIED. THERE WAS A FULL THICKNESS TEAR. IT MEASURED APPROXIMATELY 3 CM X 2 CM. THE GREATER TUBEROSITY WAS DEBRIDED TO BLEEDING BONE. 3 ARTHREX SUTURE ANCHORS WERE PLACED IN TO GOOD BONE AND HAD VERY GOOD BITES. IGNACIO-YULISSA TYPE REPAIRS WERE DONE TO THE ROTATOR CUFF AND THERE WAS GOOD APPROXIMATION TO THE GREATER TUBEROSITY. THE REPAIR WAS EXCELLENT. THERE WAS NO IMPINGEMENT ON THE REPAIR FROM THE ACROMION WITH RANGE OF MOTION. THE WOUND WAS IRRIGATED WITH COPIOUS AMOUNTS OF ANTIBIOTIC SOLUTION STERILE BETADINE AND H2O2 AND STERILE WATER SOLUTION. THE DELTOID MUSCLE WAS REPAIRED WITH #2 FIBER WIRE AND 0 VICRYL SUTURE. THE SUBCUTANEOUS LAYER WAS APPROXIMATED WITH 2-0 VICRYL. THE SKIN WAS APPROXIMATED WITH 3-0 QUIL AND DERMABOND. STERILE DRESSING WAS APPLIED. PATIENT WAS EXTUBATED. Estimated Blood Loss 50 Complications No immediate complications Condition Stable Disposition PACU
== END 2025-03-23 16:00 | disposition home or self-care (01) ==
PROVIDERS: PCP Family Medicine; Visit Provider Orthopaedic Surgery
PROC: (CPT 23420; principal; 2025-03-23 10:30)
DX: M75.121 Complete rotator cuff tear or rupture of right shoulder, not specified as traumatic (principal); M75.41 Impingement syndrome of right shoulder; G89.29 Other chronic pain; I10 Essential (primary) hypertension; R55 Syncope and collapse; Z79.82 Long term (current) use of aspirin; Z98.890 Other specified postprocedural states; Z90.49 Acquired absence of other specified parts of digestive tract; Z87.19 Personal history of other diseases of the digestive system; Z85.42 Personal history of malignant neoplasm of other parts of uterus; Z80.1 Family history of malignant neoplasm of trachea, bronchus and lung; Z80.3 Family history of malignant neoplasm of breast; Z82.49 Family history of ischemic heart disease and other diseases of the circulatory system
CPT/HCPCS: 23412; J0690; A9270; C1713; J1100; J1171; J2003; J2250; J2405; J2704; J3010; J7120